=== PATIENT | male | born 1960 | race Caucasian/White ===

== ENCOUNTER → 2021-07-13 09:55 | Outpatient (BNVA) | payer OTHER, MEDICARE, SELFPAY | PROVIDERS: PCP Internal Medicine; Visit Provider Surgery Vascular Surgery ==

== ENCOUNTER 2021-07-19 06:03 | Day surgery (SDC) | payer MEDICARE, SELFPAY ==
--- NOTE | 2021-07-16 10:27 | P.CONAN_ITS ---
Documented by User: Mary Bennett NP 07/16/21 10:29 HPI - Anesthesia Eval Consult details Narrative: 61yo M for Left Temporal Artery Biopsy Prednisone 60mg daily for giant cell arteritis FORMERLY [facility], 1928–1983 Active Problems Active Problems: All Active Problems (Updated 07/16/21 @ 10:16 by Laurie Carrillo) Giant cell arteritis (Acute) Past Medical History Medical History (Updated 07/19/21 @ 06:42 by Mona Chaney, RN) Aftercare following right ankle joint replacement surgery Chronic sinusitis CKD (chronic kidney disease) stage 4, GFR 15-29 ml/min COVID-19 Hypertension Left tibial fracture Surgical History Surgical History (Updated 07/19/21 @ 06:42 by Mona Chaney, MAYKEL) Status post bilateral total hip replacement Social History Social History Are you a primary healthcare specialist to a significant other at home: No Do you presently have visiting nurse or other home services: No Patient Tobacco Use Status: Former Tobacco user Tobacco use type: Cigarette Meds Allergies Allergy/AdvReac Type Severity Reaction Status Date / Time lisinopril [From Zestril] AdvReac Cough Verified 07/19/21 07:25 Home Medications Medication Instructions Recorded Confirmed Last Taken Type losartan 100 mg tablet 100 mg PO DAILY 07/13/21 Unknown History ofloxacin 0.3 % ear drops 5 drp OTIC (EARS) BID 07/13/21 Unknown History prednisone 20 mg tablet 60 mg PO DAILY 07/13/21 Unknown History Exam Exam Date and Time: July 16, 2021 1027 Assessment and Plan Assessment Anesthesia Assessment: Chart Reviewed Documented by User: Jordon Mckeon MD 07/19/21 11:30 HPI - Anesthesia Eval Consult details Narrative: 61yo M for Left Temporal Artery Biopsy Recently his doctor has been adjusting his anti hypertensives . Will proceed as delaying the procedure will delay the diagnosis and may impact the patient adversely . Prednisone 60mg daily for giant cell arteritis FOR[facility]LY [facility], [facility] Past Medical History Medical History (Updated 07/19/21 @ 06:42 by Mona Chaney, RN) Aftercare following right ankle joint replacement surgery Chronic sinusitis CKD (chronic kidney disease) stage 4, GFR 15-29 ml/min COVID-19 Hypertension Left tibial fracture Functional capacity: independent ambulation Family History Family history of problems with anesthesia: No Surgical History Surgical History (Updated 07/19/21 @ 06:42 by Mona Chaney, RN) Status post bilateral total hip replacement History of Problems with Anesthesia: No Social History Social History Are you a primary healthcare specialist to a significant other at home: No Do you presently have visiting nurse or other home services: No Patient Tobacco Use Status: Former Tobacco user Tobacco use type: Cigarette Meds Allergies Allergy/AdvReac Type Severity Reaction Status Date / Time lisinopril [From Zestril] AdvReac Cough Verified 07/19/21 07:25 Home Medications Medication Instructions Recorded Confirmed Last Taken Type losartan 100 mg tablet 100 mg PO DAILY 07/13/21 Unknown History ofloxacin 0.3 % ear drops 5 drp OTIC (EARS) BID 07/13/21 Unknown History prednisone 20 mg tablet 60 mg PO DAILY 07/13/21 Unknown History Exam Airway Mallampati Class: II TM Dist: >3cm Neck ROM: Full Loose/Missing/Broken Teeth: Yes (Caps , crowns ) Heart: rrr Lungs: bl breath sounds Assessment and Plan Assessment Anesthesia Assessment: Anesthesia Plan Discussed Final Anesthetic Review Family History of Problems with Anesthesia: No History of Problems with Anesthesia: No NPO: Yes ASA Class: III Final Preanesthetic Review: Meds/Allgs Chart Reviewed, Consent Obtained/Reviewed and Anes Risks/Benef Reviewed Patient Risk: High Procedure Risk: Intermediate Anesthetic Plan Anesthetic Plan: MAC: Disposition: Standard PACU
[2021-07-19 06:12] VITALS: BP 176/87; PULSE 55; RESP 18; TEMP 36.6; O2SAT 99; BMI 23.9
[2021-07-19] MEDS: 0.9 % Sodium Chloride 1,000 ML 100 ML IVCONT (07:14)
--- NOTE | 2021-07-19 08:28 | P.OP_ITS ---
Operative Note Operative Note Date of Service: 07/19/21 Narrative: Operative note by [facility] Preoperative diagnosis:Giant cell arteritis Postoperative diagnosis: same Procedure: left temporal artery biopsy Surgeon:Evan Beltrán M.D. Supervisor Pipeline Maintenance: non Anesthesia: local with sedation Specimens: 1 Drains: none Estimated blood loss: 10 mL Indications: 61-year-old gentleman who presented with left temporal headaches. He presents for temporal artery biopsy. The patient has signed the informed consent after reviewing risks, complications, benefits, and alternatives previously discussed with the patient. The patient was given the opportunity to ask any additional questions or voice any concerns. All questions were answered to the patient's satisfaction. Procedure in detail: Patient was brought to the operating room prior to which a time-out was called for patient identification and site verification. Local was infiltrated. approximately a 2 inch incision was carried out over the temporal area just anterior to the ear. We dissected down on to the temporal artery. this was easily identified. This was confirmed with Doppler. We dissected out approximately a 2 in length. We placed a proximal and distal 3-0 silk tie. Specimen was then removed. Wound was irrigated out thoroughly. Deep layer was reapproximated using 3-0 Polysorb. Skin was closed with a 4-0 Monocryl. Dermabond was used as a sterile dressing. At the end the case sponge instrument counts were correct. Patient tolerated the procedure well and returned to recovery with stable vitals. This note is constructed using voice recognition software. While every effort has been made to ensure accuracy, gear straightener errors may have been included. Thank you for allowing me to participate in the care of your patient. Yours sincerely, Evan Beltrán MD, FACS, R.P.V.I.
[2021-07-19 08:31] VITALS: BP 159/74; PULSE 56; RESP 17; TEMP 36.3; O2SAT 97
[2021-07-19] MEDS: Acetaminophen 325 MG TABLET 650 MG PO (08:32)
[2021-07-19] MEDS: oxyCODONE HCl Immed Release 5 MG TABLET PO (08:33)
[2021-07-19 08:46] VITALS: BP 159/95; PULSE 64; RESP 18; TEMP 36.1; O2SAT 99
== END 2021-07-19 09:10 | disposition home or self-care (01) ==
PROVIDERS: Visit Provider Surgery Vascular Surgery
PROC: (CPT 37609; principal; 2021-07-19 07:30)
DX: G44.221 Chronic tension-type headache, intractable (principal); J32.9 Chronic sinusitis, unspecified; I12.9 Hypertensive chronic kidney disease with stage 1 through stage 4 chronic kidney disease, or unspecified chronic kidney disease; N18.4 Chronic kidney disease, stage 4 (severe); Z79.899 Other long term (current) drug therapy; Z79.52 Long term (current) use of systemic steroids; Z88.8 Allergy status to other drugs, medicaments and biological substances; Z87.891 Personal history of nicotine dependence; Z86.16 Personal history of COVID-19
CPT/HCPCS: 37609; 88305; J0690; J2250; J3010

== ENCOUNTER → 2023-07-21 09:54 | Outpatient (BNVA) | payer MEDICARE, SELFPAY | PROVIDERS: PCP Nurse Practitioner Family; Referring Provider Nurse Practitioner Family; Visit Provider Physician Assistant | DX: M53.3 Sacrococcygeal disorders, not elsewhere classified (principal); G89.29 Other chronic pain | CPT/HCPCS: 99202 ==

== ENCOUNTER 2023-07-21 14:42 | Outpatient (AMB) | payer MEDICARE, SELFPAY ==
--- NOTE | 2023-07-21 10:05 | HO.SPINEOV ---
Intake Intake Visit Reasons: Spinal Stenosis Lumbar Region Intake Note: Mr. Caraballo is here today c/o Low back pain. Metal Room Dental Technician Required: No Allergies lisinopril [From Zestril] Adverse Reaction (Verified 07/19/21 07:25) Cough Assessment & Plan Assessment & Plan (1) Chronic SI joint pain: Code(s): M53.3 - Sacrococcygeal disorders, not elsewhere classified; G89.29 - Other chronic pain Plan Dear Rakel, Thank you for referring Mr Caraballo to our office today. He is a very nice 63-year-old gentleman with a previous L4-[address] Cortez in 2011. He comes today with a multiyear history of pain on the left side of the low back near his SI joint which will radiate into his anterior groin and into his left buttock. The pain can be particularly bad with bending. He will also occasionally get a feeling of numbness in his foot any can reproduce it by pushing on the backside of his hamstring and buttock. He does have a history of neuropathy but this weird numbness feeling will be aggravated with activity or motion. He does not really have any pain on the right side in his low back or down his leg but does have a component of numbness in his leg and his foot on the right as well. He feels no significant discomfort lying down. He will take Tylenol for the pain. He can not take NSAIDs because of stage 4 kidney disease. He smokes marijuana daily to help with the pain as well. He comes today with an MRI showing degenerative disc disease in the setting of previous surgery. PMH: History of hypertension since he was a teenager that has not been well controlled and he has stage 4 kidney disease secondary to hypertensive nephropathy. History of osteoporosis, hypothyroidism, anemia, neuropathy, bilateral total hip replacements, L4-5 fusion, appendectomy. Denies any heart attacks, strokes, liver disease, abdominal surgery, bleeding disorders. Social hx: He does not smoke cigarettes, does not use alcohol but he does smoke marijuana daily to help with his pain Medications: Torsemide, pravastatin, carvedilol, levothyroxine, gabapentin, allopurinol, losartan, Farxiga, sodium bicarbonate, multivitamin and baby aspirin Allergies: Zestril Physical exam: Awake alert oriented no acute distress, patient has positive finger Bonifacio test, positive LEATHA sign on the left I am able to reproduce his pain exactly with this motion. Positive Gaenslen test on the left as well. Strength is grossly intact, reflexes normal. Imaging review: He has a lumbar MRI done at [facility] showing postsurgical changes with good decompression at L4-5. He has evidence of a solid fusion at L4-5. There is degenerative disc disease at L5-S1 with bilateral neural foraminal narrowing greater on the right. There is moderate central canal stenosis at L2-3. Impression: 63-year-old male history of previous L4-5 lumbar fusion now presents with a multiyear history of a left-sided low back pain which seems to localize itself over the left SI joint which is aggravated with bending forward. There is a component of numbness down his left leg which he can reproduce with pushing on his left hamstring and buttock area. He does have neuropathy in his feet but this is different and can be induced by different activities and manual compression. There is also component of anterior groin pain. His physical exam has a lot of findings suggestive of SI joint inflammation. There is also moderate stenosis at the left L5 foramen. Both of these things can produce similar symptoms of left-sided low back pain, left buttock pain and give tingling in the foot. Because of his physical exam findings I am going to have him evaluated for SI joint inflammation and give an SI joint block to see if we can localize where this is coming from. If it is unresponsive to the SI joint block, we will do an L5 block. At this time I do not think is L2-3 stenosis is symptomatic because he does not have claudicating leg pains, he has more of a mechanical situation on the left back and left buttock region which seems to me to fit better with the above diagnosis. I will see him back after the injection. Thank you for allowing us to care for your patient. The total time spent with this visit with this patient was 45 minutes reviewing history, physical exam, lumbar imaging review, and implementation of treatment plan or further diagnostic testing Jacky Gandhi MD,PhD [facility] Orders: Referrals Physiatry Referral G89.29 - Other chronic pain, M53.3 - Sacrococcygeal disorders, not elsewhere classified Coding Level of Care Code New Pt Level 4 (97945) Diagnoses Chronic SI joint pain M53.3; G89.29
== END 2023-07-21 15:36 | disposition home or self-care (01) ==
PROVIDERS: PCP Internal Medicine; Referring Provider Nurse Practitioner Family; Visit Provider Physician Assistant
DX: M53.3 Sacrococcygeal disorders, not elsewhere classified (principal); G89.29 Other chronic pain
CPT/HCPCS: 99204; 99214

== ENCOUNTER 2024-02-02 11:12 | Outpatient (AMB) | payer MEDICARE, SELFPAY ==
--- NOTE | 2024-02-02 11:28 | HO.SPINEOV ---
Intake Visit Reasons: failed SI injection Intake Note: Mr. Caraballo is here today to F/u after failed SI injections. Envelope Stamping Machine Operator Required: No Allergies lisinopril [From Zestril] Adverse Reaction (Verified 07/19/21 07:25) Cough Assessment & Plan Assessment & Plan (1) Chronic SI joint pain: Code(s): M53.3 - Sacrococcygeal disorders, not elsewhere classified; G89.29 - Other chronic pain Category: Medical Plan Mr Caraballo is here to follow up on his SI joint injection. He had 100% pain relief with the lidocaine injection into the SI joint suggesting this is a mechanical problem. He has been wearing the SI joint belt prescribed to him by Dr. Rivera and that also has been helping significantly. It is cumbersome but he does admit that he has a positive effect. He still hears the clunking noise in his SI joint when he stands and bends. I think we have enough information here to confirm as the SI joint as the source of his pain. However, we know that the insurance companies have been requiring a 2nd follow up injection to confirm the pain is coming from the SI joint, so I will contact Dr. Rivera to see if he can repeat this for us. We will tentatively schedule him for an SI joint fusion once the 2nd injection is completed and confirmed that it is giving him the same affect is the 1st 1. We did discuss SI joint fusion, risks, benefits and recovery. Dr. Gandhi met with the patient today as well. Total amount of time spent in this visit was 20 minutes in discussion of symptoms, SI joint and lumbar imaging results and subsequent plan of care Jacky Gandhi MD,PhD [facility] Coding Level of Care Code Est Pt Level 3 (22204) Diagnoses Chronic SI joint pain M53.3; G89.29
== END 2024-02-02 12:23 | disposition home or self-care (01) ==
PROVIDERS: PCP Internal Medicine; Visit Provider Physician Assistant
DX: M53.3 Sacrococcygeal disorders, not elsewhere classified (principal); G89.29 Other chronic pain
CPT/HCPCS: 99213

== ENCOUNTER → 2024-02-02 11:12 | Outpatient (BNVA) | payer MEDICARE, SELFPAY | PROVIDERS: PCP Internal Medicine; Visit Provider Physician Assistant | DX: M53.3 Sacrococcygeal disorders, not elsewhere classified (principal); G89.29 Other chronic pain | CPT/HCPCS: 99212 ==

== ENCOUNTER 2024-03-15 13:38 | Outpatient (AMB) | payer MEDICARE, SELFPAY ==
--- NOTE | 2024-03-15 13:47 | HO.SPINEOV ---
Intake Visit Reasons: follow up Intake Note: Mr. Caraballo is here today for a F/u. Inspector Mechanical Required: No Allergies lisinopril [From Zestril] Adverse Reaction (Verified 03/15/24 13:48) Cough Assessment & Plan Assessment & Plan (1) Chronic SI joint pain: Code(s): M53.3 - Sacrococcygeal disorders, not elsewhere classified; G89.29 - Other chronic pain Category: Medical Plan Mr Caraballo is following up today to discuss the results of his injection in the left SI joint. His 2nd injection did give him complete relief for few hours after the procedure indicating here that now we have to success of injections with lidocaine demonstrating the SI joint as the source of his pain. As outlined in my previous notes, he has severe left SI joint pain which has been overwhelming. Here is a clunking noise in his SI joint when he moves his hips in a flexed position. He has positive physical exam findings including finger Bonifacio test, SI joint compression test, Gaenslen test, LEATHA testing. He has been on medication trials etc.. I think we have enough data to justify left SI joint fusion. Patient previously saw Dr. Gandhi who agreed that if a 2nd follow up injection gav him relief, we would offer him left SI joint fusion. We have tentatively booked him for April 18. He will stop his aspirin 7 days prior to surgery. He understands he needs to use crutches and be off his leg for 3 weeks after surgery. He has a pair at home he will bring them the day of surgery. Pt was given risk and benefits of surgery including but not limited to infection, hematoma , nerve injury,durotomy, weakness,bowel/bladder injury, persistent pain, as well as the option to continue with conservative treatment and patient wishes to proceed with surgery. Pt is aware they should stop their motrin, aspirin 7 days prior to surgery. All questions were answered to the best of our ability. If there is anything about this patients medical history that we have overlooked or concerns you have about us proceeding with surgery we would appreciate any input you can offer. Total amount of time spent in this visit was 20 minutes in discussion of symptoms, previous lumbar MRI imaging results and subsequent plan of care Jacky Gandhi MD,PhD [facility] Coding Level of Care Code Est Pt Level 3 (97608) Diagnoses Chronic SI joint pain M53.3; G89.29
== END 2024-03-15 14:17 | disposition home or self-care (01) ==
PROVIDERS: PCP Internal Medicine; Visit Provider Physician Assistant
DX: M53.3 Sacrococcygeal disorders, not elsewhere classified (principal); G89.29 Other chronic pain
CPT/HCPCS: 99213

== ENCOUNTER → 2024-03-15 13:38 | Outpatient (BNVA) | payer MEDICARE, SELFPAY | PROVIDERS: PCP Internal Medicine; Visit Provider Physician Assistant | DX: M53.3 Sacrococcygeal disorders, not elsewhere classified (principal); G89.29 Other chronic pain | CPT/HCPCS: 99212 ==

== ENCOUNTER 2024-04-18 08:47 | Day surgery (SDC) | payer MEDICARE, SELFPAY ==
[2024-04-17 13:44] VITALS: BMI 22.5
[2024-04-18] VITALS (9 sets, daily range): BP systolic 107–158; BP diastolic 68–87; PULSE 60–74; RESP 14–18; TEMP 36.1–36.7; O2SAT 96–100
[2024-04-18] MEDS: Lactated Ringers 1,000 ML 80 ML IVCONT (09:28)
--- NOTE | 2024-04-18 09:57 | MHC.SHP ---
Pre-Procedural Eval Section A - 24 Hr Update-Section A only Date of Service: 04/18/24 The patient is an INPATIENT: No Section B - Complete if H&P > 30 days Chief Complaint: Sacrococcygeal disorders, not elsewhere classified Details of Present Illness: Left SI joint pain Allergies: Allergies Allergy/AdvReac Type Severity Reaction Status Date / Time oxycodone [From OxyContin] Allergy Intermediate Itching Verified 04/18/24 09:14 lisinopril [From Zestril] AdvReac Intermediate Cough Verified 04/18/24 09:14 Review of Systems Sugical H&P ROS: Negative: Constitution, Cardiovascular, Respiratory, Neurological, Psychiatric, Hem-Onc, Allergic/Immunologic, Gastrointestinal, Genitourinary, Musculoskeletal, Integumentary, Endocrine and Eyes/Ears/Nose/Throat Exam Surgical H&P Exam: Normal: HEENT, Normal: Heart, Normal: Lungs, Normal: Extremities, Normal: Abdomen, Normal: Skin and Normal: Neurological (Awake, alert) Plan Diagnosis/Plan: Unchanged I have reviewed the history and physical and performed a pertinent physical examination on my patient. No changes have occurred unless specified. Left SI joint fusion Time Spent With Patient Time: Total time managing care of this patient today __5__ minutes.
--- NOTE | 2024-04-18 10:08 | P.DS_ITS ---
DS: Providers Provider Date of Service: 04/18/24 <BRISEIDA Felix - Last Filed: 04/18/24 11:47> Date of discharge: 04/18/24 <BRISEIDA Felix - Last Filed: 04/18/24 11:47> Primary care physician: Ann Marie Boucher MD <BRISEIDA Felix - Last Filed: 04/18/24 11:47> Admitting clinician: Carl Gandhi <BRISEIDA Felix - Last Filed: 04/18/24 11:47> DS: Diagnosis Discharge Diagnosis (1) Chronic SI joint pain: Status: Acute <BRISEIDA Felix - Last Filed: 04/18/24 11:47> DS: Summary Time Attestation Discharge Coordination Time (in mins): 15 <BRISEIDA Rosa - Last Filed: 04/18/24 12:42> Quality: Safe Use of Opioids Does Pt have an Active Cancer Diagnosis on the Problem List?: No <BRISEIDA Rosa - Last Filed: 04/18/24 12:42> Quality: Stroke Does the patient have a stroke diagnosis?: No <BRISEIDA Rosa - Last Filed: 04/18/24 12:42> Physical Exam Vital Signs: Vital Signs: Last Vital Signs Temp 98.1 F 04/18/24 09:26 Pulse 61 04/18/24 09:26 Resp 18 04/18/24 09:26 BP 137/82 04/18/24 09:26 Pulse Ox 100 04/18/24 09:26 O2 Del Method Room Air 04/18/24 09:26 BMI result Body Mass Index 22.5 <BRISEIDA Felix - Last Filed: 04/18/24 11:47> Discharge Plan Discharge Patient Disposition: Home, Self-Care <BRISEIDA Felix - Last Filed: 04/18/24 11:47> Referrals: Ann Marie Boucher MD [Primary Care Provider] - 1 Week <BRISEIDA Felix - Last Filed: 04/18/24 11:47> Discharge Medications: New docusate sodium [Colace] 100 mg capsule 100 mg PO BID Qty: 20 0RF tramadol 50 mg tablet 50 mg PO Q8H PRN (Reason: pain) Qty: 20 0RF Continued torsemide 10 mg tablet 10 mg PO DAILY amlodipine 5 mg tablet 5 mg PO DAILY allopurinol 100 mg tablet 200 mg PO DAILY levothyroxine 125 mcg tablet 125 mcg PO DAILY dapagliflozin propanediol [Farxiga] 10 mg tablet 10 mg PO QAM losartan 100 mg tablet 100 mg PO DAILY gabapentin 300 mg capsule 600 mg PO BID pravastatin 80 mg tablet 80 mg PO DAILY carvedilol 25 mg tablet 25 mg PO BID aspirin [Adult Aspirin Regimen] 81 mg tablet,delayed release (DR/EC) 81 mg PO DAILY <BRISEIDA Felix - Last Filed: 04/18/24 11:47> Discharge Orders: Discharge Order (Routine); Ordered 04/18/24 Ordered By: Haris Cedillo <BRISEIDA Felix - Last Filed: 04/18/24 11:47> Diet: Advance to usual diet <BRISEIDA Felix - Last Filed: 04/18/24 11:47> Advance to usual diet <BRISEIDA Rosa - Last Filed: 04/18/24 12:42> Activity on Discharge: As tolerated <BRISEIDA Felix - Last Filed: 04/18/24 11:47> As tolerated <BRISEIDA Rosa - Last Filed: 04/18/24 12:42> Activity Restrictions/Additional Instructions: After your SI joint fusion surgery we ask you to observe the following restrictions/guidelines: Activity: It is normal to feel some discomfort as you increase your activity, but that will improve with time. We ask you avoid heavy lifting or acitivities that cause pain. As a general rule, 8lbs is a safe limit for lifting right after surgery. We ask you to stay off your left leg after surgery in order to help the SI joint fuse. Please use crutches or walker. You may return to driving when you are off narcotics (such as vicodin, oxycodone, dilaudid, etc), and you are back to normal functional capacity. If you have any concerns please check with office before driving. Return to work is specific to each patient and each surgery, so please speak with your doctor/PA at first follow up. Please bring paperwork such as FMLA at that time if you need it filled out. Follow up: Please call the office, , after surgery to arrange a 3 week follow up for wound check. Wound Care: Your wound was closed with glue, there are no sutures to remove. You may shower on post op day # 1. We ask that you do not let the water soak the wound. If it does get wet, just towel dry lightly. Please do not scrub your incision or place any type of chemical/ointment on the wound. No tub baths, pools or jacuzzis for one month. If you have any leaking or redness from your wound, or fevers, please call office Medications: We will give you a short supply of narcotics after surgery (usually one weeks worth). If you need more please call the office but do not use more than prescribed. You will need to give our office 48 hours notice if you need narcotics refilled and we do not fill narcotics on weekends or evenings. If you are on a narcotic, it is a good idea to take a stool softener such as colace or senna to avoid constipation If you take blood thinner such as aspirin, Plavix, Coumadin, Effient, Eliquis etc for conditions such as Afib, DVT, Pulmonary embolus, coronary disease, stents etc please speak with your surgeon about specific details as to when you can resume these medications. You can resume NSAIDs on post op day 1 (eg: Motrin, Naproxen, etc). <BRISEIDA Felix - Last Filed: 04/18/24 11:47> Print Language: Northern Irish <BRISEIDA Felix - Last Filed: 04/18/24 11:47>
[2024-04-18] MEDS: methocarbamoL 750 MG TABLET PO (10:14)
--- NOTE | 2024-04-18 10:40 | P.CONAN_ITS ---
[facility] Active Problems Active Problems: All Active Problems Chronic SI joint pain (Acute) Giant cell arteritis (Acute) Past Medical History Medical History Giant cell arteritis Elevated cholesterol H/O sciatica Gout Left tibial fracture Aftercare following right ankle joint replacement surgery Chronic sinusitis COVID-19 CKD (chronic kidney disease) stage 4, GFR 15-29 ml/min Hypertension Family History Family history of problems with anesthesia: No Surgical History Surgical History Hx of decompressive lumbar laminectomy History of temporal artery biopsy (07/19/21) Status post bilateral total hip replacement (~2013) History of Problems with Anesthesia: No Social History Social History Are you a primary palliative care specialist to a significant other at home: Yes (mother- siblings will help post-op) Do you presently have visiting nurse or other home services: No Patient Tobacco Use Status: Former Tobacco user Tobacco use type: Cigarette Smoked in Last 30 Days: No Use of substances other than those prescribed or required for medical reasons: Yes Substance Use Frequency: Daily Have you been hit, kicked, punched, or otherwise hurt by someone within the past year? If so, by whom?: No Are you DNR?: No Advance Directives: No (will bring dos) Advance Directives Information Provided: Yes Advance Directives on File: No Recently lost weight without trying: No Nutrition Risks: No Nutritional Risk Poor oral hygiene: No Meds Allergies Allergy/AdvReac Type Severity Reaction Status Date / Time oxycodone [From OxyContin] Allergy Intermediate Itching Verified 04/18/24 09:14 lisinopril [From Zestril] AdvReac Intermediate Cough Verified 04/18/24 09:14 Active Medications: Current Medications Lactated Ringer's (Lr) 1,000 mls @ 80 mls/hr IVCONT .[id number] URSULA Last Admin: 04/18/24 09:28 Dose: 80 mls/hr Home Medications ?Medication ?Instructions ?Recorded ?Confirmed ?Last Taken ?Type losartan 100 mg tablet 100 mg PO DAILY 07/13/21 04/17/24 Unknown History aspirin 81 mg tablet,delayed 81 mg PO DAILY 0304/17/24 04/12/24 History release (Adult Aspirin Regimen) carvedilol 25 mg tablet 25 mg PO BID 07/21/23 04/17/24 04/18/24 History gabapentin 300 mg capsule 600 mg PO BID 07/21/23 04/17/24 04/18/24 History pravastatin 80 mg tablet 80 mg PO DAILY 07/21/23 04/17/24 04/18/24 History allopurinol 100 mg tablet 200 mg PO DAILY 04/17/24 04/17/24 Unknown History amlodipine 5 mg tablet 5 mg PO DAILY 04/17/24 04/17/24 Unknown History dapagliflozin propanediol 10 mg 10 mg PO QAM 04/17/24 04/17/24 04/15/24 History tablet (Farxiga) levothyroxine 125 mcg tablet 125 mcg PO DAILY 04/17/24 04/17/24 04/18/24 History torsemide 10 mg tablet 10 mg PO DAILY 04/17/24 04/17/24 Unknown History Exam Height,Weight and Vital Signs: Height 5 ft 8 in Weight 67.132 kg Last Vital Signs Temp 98.1 F 04/18/24 09:26 Pulse 61 04/18/24 09:26 Resp 18 04/18/24 09:26 BP 137/82 04/18/24 09:26 Pulse Ox 100 04/18/24 09:26 O2 Del Method Room Air 04/18/24 09:26 Airway Mallampati Class: II TM Dist: >3cm Neck ROM: Full Assessment and Plan Assessment Anesthesia Assessment: Anesthesia Plan Discussed and Chart Reviewed Final Anesthetic Review Family History of Problems with Anesthesia: No History of Problems with Anesthesia: No NPO: Yes ASA Class: II Final Preanesthetic Review: No Changes in Pt Med Stat, Meds/Allgs Chart Reviewed, Consent Obtained/Reviewed and Anes Risks/Benef Reviewed Patient Risk: Low Procedure Risk: Low Anesthetic Plan Anesthetic Plan: GA Disposition: Standard PACU
[2024-04-18] MEDS: fentaNYL citrate/PF 100 MCG/2 ML VIAL 50 MCG IVPUSH (13:19)
--- NOTE | 2024-04-18 14:15 | W.PM.OPN ---
Operative Note Operative Note Date of Service: 04/18/24 Narrative: Preoperative diagnosis: Left sacroiliitis Postoperative diagnosis: Same Operative procedure: Left sacroiliac joint fusion with 1 allograft implant Surgeon: Carl Gandhi MD, PhD Journal Box Inspector: Jacky Valdes PA-C Anesthesia: General Description of procedure: The patient is suffering from left SI joint dysfunction refractory to nonoperative management. The patient has tried and failed all forms of conservative manage med except for an excellent short-term response to a sacroiliac joint injection. The sacroiliac joint was confirmed to be the pain generator after repeated pain blocks. The patient was offered surgical treatment with fixation and arthrodesis of the SI joint. The patient was brought to the operating room and endotracheally intubated. The patient was turned in a prone position on Michael spine table. Prepping and draping was done followed by a time-out. A C-arm was alternately positioned for lateral, oblique oblique and pelvic inlet and outlet projections througout the procedure. Skin markings were made for the anticipated position of the implant. A 2.5 cm longitudinal skin incision was made. A guide pin was inserted in an outlet oblique image for guidance follow-up insertion of dilator and working cannula. This was secured by placing an anchor pin into the ilium. Consideration was taken to cut channels utilizing a series of drills for decortication and internal fixation device placement. The implant was inserted such that it passed through the ilium, across the sacroiliac joint and into the sacrum, thus transfixing the sacroiliac joint. Proper positioning was confirmed on lateral fluoroscopy. The implant was packed with autologous bone collected from remain of the sacrum and ilium. Additional graft material was inserted into the channel void following the implant. The instruments were withdrawn. Upon completion, final images were obtained that showed a satisfactory position of the implant. Hemostasis was done. The incision was closed with an 0 Vicryl to fashion a 3-0 Vicryl subdermal layer after injecting Marcaine. Dermabond was used to approximate the surgeon. All sponge and needle counts were correct. Patient was extubated and transported in a stable condition to recovery room. Estimated blood loss: 40 mL Surgical time: 45 minutes Complications: None Disposition: Discharge to home
== END 2024-04-18 14:07 | disposition home or self-care (01) ==
PROVIDERS: PCP Internal Medicine; Visit Provider Neurological Surgery
PROC: (CPT 27279; principal; 2024-04-18 11:10)
DX: M46.1 Sacroiliitis, not elsewhere classified (principal); G89.29 Other chronic pain; M53.3 Sacrococcygeal disorders, not elsewhere classified; M31.6 Other giant cell arteritis; M10.9 Gout, unspecified; I12.9 Hypertensive chronic kidney disease with stage 1 through stage 4 chronic kidney disease, or unspecified chronic kidney disease; N18.4 Chronic kidney disease, stage 4 (severe); E78.00 Pure hypercholesterolemia, unspecified; Z79.82 Long term (current) use of aspirin; Z79.899 Other long term (current) drug therapy; Z88.2 Allergy status to sulfonamides; Z88.8 Allergy status to other drugs, medicaments and biological substances; Z98.890 Other specified postprocedural states; Z87.891 Personal history of nicotine dependence
CPT/HCPCS: 27279; C1713; J0131; J0690; J1100; J1885; J2003; J2250; J2405; J2704; J3010; L8699

== ENCOUNTER → 2024-04-18 08:47 | Outpatient (BNV) | payer MEDICARE, SELFPAY | PROVIDERS: PCP Internal Medicine; Visit Provider Neurological Surgery | DX: M46.1 Sacroiliitis, not elsewhere classified (principal); M53.3 Sacrococcygeal disorders, not elsewhere classified | CPT/HCPCS: 27279 ==

== ENCOUNTER 2024-05-09 08:54 | Outpatient (REF) | payer MEDICARE, SELFPAY | END 2024-05-09 08:55 | disposition home or self-care (01) | LOC: HO.HOSX 08:54 | PROVIDERS: PCP Internal Medicine; Visit Provider Physician Assistant | DX: M53.3 Sacrococcygeal disorders, not elsewhere classified (principal); G89.29 Other chronic pain | CPT/HCPCS: 99212 ==

== ENCOUNTER 2024-05-09 08:54 | Outpatient (AMB) | payer MEDICARE, SELFPAY ==
--- NOTE | 2024-05-09 08:58 | HO.SPINEOV ---
Intake Visit Reasons: 1st post op Intake Note: Mr. Caraballo is here today for his 1st post op Aviation Tactical Readiness Officer Required: No Allergies oxycodone [From OxyContin] Allergy (Intermediate, Verified 04/18/24 09:14) Itching lisinopril [From Zestril] Adverse Reaction (Intermediate, Verified 04/18/24 09:14) Cough Assessment & Plan Assessment & Plan (1) Chronic SI joint pain: Code(s): M53.3 - Sacrococcygeal disorders, not elsewhere classified; G89.29 - Other chronic pain Category: Medical Plan Operative procedure: Left sacroiliac joint fusion Javier comes in today for his 1st postoeprative visit after Left SI joint fusion 3 weeks ago. To recap he was initially evaluated in clinic for multi-year history of pain on the left side of the low back near his SI joint which will radiate into his anterior groin and into his left buttock. He reports complete resolution of his low back pain and leg pain since the surgery. He has been ambulating well without issue, completing stairs, and is taking no current medications. He reports that the numbness in his left posterior buttocks is also resolved since the surgery. We discussed the postoperative healing course and I answered all of his questions to the best of my ability. No new neurological deficits. The patient ambulates well and rises from a seated position without difficulty. His posterior incision site is clean, dry, with no signs of drainage. It appears to be healing well, there is a small seroma near the area, but this is likely to resolve with time. I would like to follow up with Javier again in 6 weeks and obtain a set of x-rays. Haris Gandhi MD,PhD [facility] Coding Level of Care Code Global (20655) Diagnoses Chronic SI joint pain M53.3; G89.29
== END 2024-05-09 09:20 | disposition home or self-care (01) ==
PROVIDERS: PCP Internal Medicine; Visit Provider Physician Assistant
DX: M53.3 Sacrococcygeal disorders, not elsewhere classified (principal); G89.29 Other chronic pain
CPT/HCPCS: 99024

== ENCOUNTER 2024-06-20 08:50 | Outpatient (AMB) | payer MEDICARE, SELFPAY ==
--- NOTE | 2024-06-20 08:53 | HO.SPINEOV ---
Intake Visit Reasons: 2nd post with xrays Intake Note: Mr. Caraballo is here today for his 2nd post op with xrays. Blind Cleaner Required: No Allergies oxycodone [From OxyContin] Allergy (Intermediate, Verified 04/18/24 09:14) Itching lisinopril [From Zestril] Adverse Reaction (Intermediate, Verified 04/18/24 09:14) Cough Assessment & Plan Assessment & Plan (1) S/P fusion of sacroiliac joint: Code(s): Z98.1 - Arthrodesis status Category: Surgical Plan Operative procedure: Left sacroiliac joint fusion Javier comes in today for his 2nd postoperative visit. He reports he is very satisfied with the surgery and feels much better than he did pre-operatively. The patient reports he is up walking around and completing the majority of his ADLs. He reports that he no longer suffers from anterior groin pain that shoots into his left buttock. His back pain is also resolved. He continues to ambulate well. We reviewed his X-ray imaging during this visit which shows stable placement of allograft fusion implant. No new neurological deficits. Patient is able to ambulate well, rises from a seated position without difficulty. Incision site is closed, well healing, with no signs of drainage. Javier is overall doing great, he is very happy with surgery and states he will be referring a couple of his friends to our service for evaluation. There is no need for continued routine follow up with Javier. He may follow up on an as needed basis. Haris Gandhi MD,PhD [facility] Coding Level of Care Code Global (55947) Diagnoses S/P fusion of sacroiliac joint Z98.1
--- OUTSIDE RECORDS SUMMARY | 2024-06-20 09:05 | XMS_ITS | Clinical Summary ---
Author Organization [facility], Address [address] [place] [address] Phone Care Team Providers Care Optical Instrument Specialist Name Role Phone Ann Marie Boucher MD Primary Care Provider [phone] Allergies Active Allergy Reactions Criticality Noted Date Comments Diltiazem 09/27/2016 Numbnes of feet Numbnes of feet Lisinopril Other (see comments) High 11/01/2005 cough cough Oxycodone Other (see comments) 06/14/2019 Simvastatin 12/14/2010 Pain on feet Pain on feet Medications alendronate (FOSAMAX) 35 MG tablet Take 35 mg by mouth every 7 (seven) days Active aspirin (ST JENNIFER) 81 MG EC tablet Take 81 mg by mouth 1 (one) time each day Active gabapentin (NEURONTIN) 300 MG capsule Take 600 mg by mouth twice a day Active levothyroxine (SYNTHROID, LEVOTHROID) 125 MCG tablet Take 125 mcg by mouth 1 (one) time each day Active pravastatin (PRAVACHOL) 80 MG tablet Take 80 mg by mouth 1 (one) time each day Active traMADol (ULTRAM) 50 MG tablet Take 100 mg by mouth twice a day Active sodium bicarbonate 650 MG tablet Take 650 mg by mouth 1 (one) time each day Active SODIUM BICARBONATE PO Take 650 mg by mouth Active ferrous sulfate 325 (65 Fe) MG EC tablet Take 325 mg by mouth 2 Active ATORVASTATIN CALCIUM PO Take by mouth 2 Active allopurinol (ZYLOPRIM) 100 MG tablet 3 Active carvedilol (COREG) 25 MG tablet TAKE 1 TABLET BY MOUTH TWICE A DAY WITH FOOD 180 tablet 3 4 Active Dapagliflozin Propanediol (Farxiga) 10 MG tablet Take 10 mg by mouth 1 (one) time each day in the morning 90 tablet 3 4 025 Active Dapagliflozin Propanediol (Farxiga) 10 MG tablet Take 10 mg by mouth 1 (one) time each day in the morning 30 tablet 11 4 Active GaviLyte-G 236 g solution 4 Active amLODIPine (NORVASC) 5 MG tablet Take 1 tablet (5 mg total) by mouth 1 (one) time each day 30 tablet 5 4 025 Active torsemide (DEMADEX) 10 MG tablet Take 1 tablet (10 mg total) by mouth 1 (one) time each day 30 tablet 3 4 Active losartan (COZAAR) 100 MG tablet TAKE 1 TABLET BY MOUTH 1 TIME EACH DAY. 90 tablet 3 5 Active losartan (COZAAR) 100 MG tablet Take 1 tablet (100 mg total) by mouth 1 (one) time each day 90 tablet 3 4 025 Discontinued Active Problems Problem Noted Date Diagnosed Date Chronic kidney disease, stage 3 (moderate) 06/14 Microalbuminuria Serum creatinine above reference range Hypercholesterolemia Essential hypertension Edema of lower extremity Anemia Resolved Problems Problem Noted Date Diagnosed Date Resolved Date Hypothyroidism 01/31/2022 Gout 01/31/2022 Encounters Date Type Department Care Team Description 06/12/2024 2:30 PM EST Office Visit [facility], [address] [address] Madi Riggins MD Chronic kidney disease, stage 4 (severe) (HCC) (Primary Dx) 05/25/2024 Refill [facility] [place] [address] Madi Riggins MD 05/06/2024 Refill [facility], [address] [place] [address] Theresa Branch from Last 3 Months Immunizations Name Administration Dates Next Due Influenza TIV (IM) 02/01/2020, 6,03/31/2015,2013 Influenza, MDCK, PF, Quadrivalent 01/17/2019, Influenza, MDCK, Quadrivalen t, with preservative 04/03/2017 Influenza, Unspecified 01/16/2021 Pfizer SARS-COV-2 02/23/2021,08/08/2020,07/19/19 21 Td 11/01/2005 Tdap 12/14/2010,06/06/2000 Family History Medical History Relation Comments Hypertension Brother Cancer Father lung Hypertension Father Lung cancer Father Dementia Mother beginning stages Hypertension Sibling brother Relation Status Comments Brother Father Alive Mother Alive Sibling Social History Tobacco Use Types Packs/Day Years Used Date Smoking Tobacco: Never Smokeless Tobacco: Never Alcohol Use Standard Drinks/Week Comments Yes 0 (1 standard drink = 0.6 oz pure alcohol) Alcoholic Drinks/day: Occasional social drink Sex and Gender Information Value Date Recorded Sex Assigned at Not on file Legal Sex Male 4:34 PM EST Gender Identity Not on file Sexual Orientation Not on file Last Filed Vital Signs Vital Sign Reading Time Taken Comments Blood Pressure 162/90 06/17/2019 2:20 PM EST Pulse - - Temperature - - Respiratory Rate - - Oxygen Saturation - - Inhaled Oxygen Concentration - - Weight 65.5 kg (144 lb 6.4 oz) 07/31/2020 9:30 A M EDT Height 172.7 cm (5' 8 ) 12/24/2018 12:00 PM EDT Body Mass Index 21.96 12/24/2018 12:00 PM EDT Plan of Treatment Upcoming Encounters Date Type Department Care Team (Late st Contact Info) Description 12/18/2024 1:45 PM EDT Office Visit [facility], [address] [place] [address] Madi Riggins MD [address] [place] [address] Health Maintenance Due Date Last Done Comments Pneumococcal Vaccine: Pediatrics (0 to 5 Years) and At-Risk Patients (6 to 64 Years) (1 of 2 - PCV) 1966 Colorectal Cancer Screening: Annual FOBT 2010 Colorectal Cancer Screening: Colonoscopy 2010 Colorectal Cancer Screening: Sigmoidoscopy 2010 Influenza Vaccine (#1) 2024 2, 01/16/2021, 02/01/2020, Additional history exists Hepatitis B Vaccine Aged Out No longe r eligible based on patient's age to complete this topic Procedures Procedure Name Priority Date/Time Associated Diagnosis Comments FERRITIN Routine 06/10/2024 11:35 AM EST MAGNESIUM Routine 06/10/2024 11:35 AM EST PHOSPHATE ( PHOSPHORUS) Routine 06/10/2024 11:35 AM EST URIC ACID Routine 06/10/2024 11:35 AM EST VITAMIN D 25 HYDROXY Routine 06/10/2024 11:35 AM EST URINE ALBUMIN / CREATININE RATIO Routine 06/10/2024 11:35 AM EST IRON PANEL (FE, TIBC, TSAT) Routine 06/10/2024 11:35 AM EST URINALYSIS WITH MICROSCOPIC Routine 06/10/2024 11:35 AM EST COMPREHENSIVE METABOLIC PANEL Routine 06/10/2024 11:35 AM EST CBC AND DIFFERENTIAL Routine 06/10/2024 11:35 AM EST MICROSCOPIC EXAMINATION - DO NOT USE Routine 06/10/2024 11:35 AM EST from Last 3 Months Results * Microscopic Examination (06/10/2024 11:35 AM EST) WBC, Urine None seen 0 - 5 /hpf [facility] RBC, Urine None seen 0 - 2 /hpf [facility] Squamous Epithelial, Urine None seen 0 - 10 /hpf [facility] Casts None seen None seen /lpf [facility] Bacteria, Urine None seen None seen/Few [facility] 06/10/2024 11:3 5 AM EST 06/10/2024 Madi Riggins MD LAB MICROBIOLOGY - GENERAL ORD ERABLES Final Result [facility] [address] [place] [address] * Iron Panel (Fe, TIBC, TSAT) (06/10/2024 11:35 AM EST) TIBC 291 250 - 450 ug/dL [facility] UIBC 221 111 - 343 ug/dL [facility] Iron 70 38 - 169 ug/dL [facility] Iron Saturation (TSat) 24 15 - 55 % [facility] 06/10/2024 11:3 5 AM EST 06/10/2024 Madi Riggins MD LAB BLOOD ORDERABLES Final Res ult Performing Organization Address City/[facility]/ZIP Co de Phone Number [facility] [address] [place] [address] * Vitamin D 25 Hydroxy (06/10/2024 11:35 AM EST) Vitamin D, 25-OH, Total 48.1 30.0 - 100.0 ng/mL [facility] Comment: Vitamin D deficiency has been defined by the [place] of Medicine and an Endocrine Society practice guideline as a level of serum 25-OH vitamin D less than 20 ng/mL (1,2). The Endocrine Society went on to further define vitamin D insufficiency as a level between 21 and 29 ng/mL (2). 1. IOM ([place] of Medicine). 2010. Dietary reference ?? intakes for calcium and D. [place]: The ?? National Academies Press. 2. Catracho MF, Kellie NC, Kelsea SALMERON, et al. ?? Evaluation, treatment, and prevention of vitamin D ?? deficiency: an Endocrine Society clinical practice ?? guideline. JCEM. 2010; 96(7):1911-30. 06/10/2024 11:3 5 AM EST 06/10/2024 us Madi Riggins MD LAB BLOOD ORDERABLES Final Res ult [facility] [address] [place] [address] * (ABNORMAL) Urinalysis with microscopic (06/10/2024 11:35 AM EST) Specific [place], Urine 1.009 1.005 - 1.030 [facility] pH Urine 6.5 5.0 - 7.5 [facility] [phone] Color, Urine Yellow Yellow [facility] [phone] Appearance Urine Clear Clear [facility] WBC Esterase Urine Negative Negative [facility] Protein, Ur Negative Negative/Tra ce [facility] [phone] Glucose, Ur Trace(A) Negative [facility] Ketones, Urine Negative Negative [facility] Blood Urine Negative Negative [facility] [phone] Bilirubin Urine Negative Negative [facility] Urobilinogen Urine 0.2 0.2 - 1.0 mg/dL [facility] [phone] Nitrite, Urine Negative Negative [facility] Microscopic Examination Comment [facility] Comment:Microscopic follows if indicated. Other Microsc. Observations See below: [facility] Comment:Microscopic was jose enrique cated and was performed. 06/10/2024 11:3 5 AM EST 06/10/2024 us Madi Riggins MD LAB URINE ORDERABLES Final Res ult [facility] [address] [place] [address] * (ABNORMAL) CBC and Differential (06/10/2024 11:35 AM EST) WBC 6.4 3.4 - 10.8 x10E3/uL [facility] RBC 3.73(L) 4.14 - 5.80 x10E6/uL [facility] Hemoglobin 13.0 13.0 - 17.7 g/dL [facility] Hematocrit 37.7 37.5 - 51.0 % [facility] MCV 101(H) 79 - 97 fL [facility] MCH 34.9(H) 26.6 - 33.0 pg [facility] MCHC 34.5 31.5 - 35.7 g/dL [facility] RDW 13.2 11.6 - 15.4 % [facility] Platelets 278 150 - 450 x10E3/uL [facility] Neutrophils Relative 66 Not Estab. % [facility] Lymphocytes Relative 21 Not Estab. % [facility] Monocytes 11 Not Estab. % [facility] Eosinophils Relative 1 Not Estab. % [facility] Basophils Relative 1 Not Estab. % [facility] Neutrophils Absolute 4.2 1.4 - 7.0 x10E3/uL [facility] Lymphocytes Absolute 1.3 0.7 - 3.1 x10E3/uL [facility] Monocytes Absolute 0.7 0.1 - 0.9 x10E3/uL [facility] Eosinophils Absolute 0.1 0.0 - 0.4 x10E3/uL [facility] Basophils Absolute 0.1 0.0 - 0.2 x10E3/uL [facility] Immature Granulocytes 0 Not Estab. % [facility] Immature Grans (Absolute) 0.0 0.0 - 0.1 x10E3/uL [facility] 06/10/2024 11:3 5 AM EST 06/10/2024 Madi Riggins MD LAB BLOOD ORDERABLES Final Res ult [facility] [address] [place] [address] * Uric Acid (06/10/2024 11:35 AM EST) Uric Acid 5.0 3.8 - 8.4 mg/dL [facility] Comment:Therapeutic target f or gout patients: <6.0 06/10/2024 11:3 5 AM EST 06/10/2024 Madi Riggins MD LAB BLOOD ORDERABLES Final Res ult [facility] [address] [place] [address] * (ABNORMAL) Phosphorus (06/10/2024 11:35 AM EST) Phosphorus 4.4(H) 2.8 - 4.1 mg/dL [facility] 06/10/2024 11:3 5 AM EST 06/10/2024 Madi Riggins MD LAB BLOOD ORDERABLES Final Res ult Performing Organization Address City/[facility]/ZIP Co de Phone Number [facility] [address] [place] [address] * Magnesium (06/10/2024 11:35 AM EST) Magnesium 2.3 1.6 - 2.3 mg/dL [facility] 06/10/2024 11:3 5 AM EST 06/10/2024 Madi Riggins MD LAB BLOOD ORDERABLES Final Res ult Performing Organization Address [facility] Co de Phone Number [facility] [address] [place] [address] * Ferritin (06/10/2024 11:35 AM EST) Ferritin 207 30 - 400 ng/mL [facility] 06/10/2024 11:3 5 AM EST 06/10/2024 Madi Riggins MD LAB BLOOD ORDERABLES Final Res ult Performing Organization Address City/[facility] Co de Phone Number [facility] [address] [place] [address] * (ABNORMAL) Comprehensive Metabolic Panel (06/10/2024 11:35 AM EST) Glucose 79 70 - 99 mg/dL [facility] BUN 48(H) 8 - 27 mg/dL [facility] Creatinine 2.50(H) 0.76 - 1.27 mg/dL [facility] eGFR CKD-EPI CR 2020 28(L) >59 mL/min/1.7 3 [facility] BUN/Creatinine Ratio 19 10 - 24 [facility] Sodium 138 134 - 144 mmol/L [facility] Potassium 4.9 3.5 - 5.2 mmol/L [facility] Chloride 99 96 - 106 mmol/L [facility] Bicarbonate (CO2) 19(L) 20 - 29 mmol/L [facility] Calcium 9.1 8.6 - 10.2 mg/dL [facility] Total Protein 7.2 6.0 - 8.5 g/dL [facility] Albumin 4.5 3.9 - 4.9 g/dL [facility] Globulin 2.7 1.5 - 4.5 g/dL [facility] Total Bilirubin 0.4 0.0 - 1.2 mg/dL [facility] Alkaline Phosphatase 76 44 - 121 IU/L [facility] AST (SGOT) 33 0 - 40 IU/L [facility] ALT (SGPT) 31 0 - 44 IU/L [facility] 06/10/2024 11:3 5 AM EST 06/10/2024 us Madi Riggins MD LAB BLOOD ORDERABLES Final Res ult [facility] [address] [place] [address] from Last 3 Months [place] [id number] [facility] [place] [id number] [facility] [place] [id number] Care Teams Optical Instrument Specialist Relationship Specialty Start Date End Date Ann Marie Boucher MD PCP - General Internal Medicine 05/10/23
--- OUTSIDE RECORDS SUMMARY | 2024-06-20 09:05 | XMS_ITS | Encounter Summary ---
Author Organization [facility] [place], Address [address] [place] [address] Phone Care Team Providers Care Corporate Tax Preparer Name Role Phone Ann Marie Boucher MD Primary Care Provider [phone] Encounter Details Date Type Department Care Team (Late st Contact Info) Description 06/10/2021 Documentation Only [facility] [address] [place] [address] Madi Riggins MD [address] [place] [address] [address] [place] [place] [address] Social History Tobacco Use Types Packs/Day Years [...] on file Sexual Orientation Not on file documented as of this encounter Plan of Treatment Upcoming Encounters Date Type Department Care Team (Late st Contact Info) Description 12/18/2024 1:45 PM EDT Office Visit [facility] [address] [place] [place] [address] Madi Riggins MD [address] [place] [address] [address] [place] [address] documented as of this encounter Visit Diagnoses Not on filedocumented in this encounter Care Teams Corporate Tax Preparer Relationship Specialty Start Date End Date Ann Marie Boucher MD PCP - General Internal Medicine 05/10/23 documented as of this encounter
--- OUTSIDE RECORDS SUMMARY | 2024-06-20 09:05 | XMS_ITS | Encounter Summary ---
Author Organization [facility], Address [address] [place] [address] Phone Care Team Providers Care Track Repair Supervisor Name Role Phone Ann Marie Boucher MD Primary Care Provider [phone] Encounter Details Date Type Department Care Team (Late st Contact Info) Description 06/16/2021 Documentation Only [facility] [address] [place] [address] Madi Riggins MD [address] [place] [address] Dr. [place]án [place] [address] Social History Tobacco Use Types [...] Visit [facility] [address] [place] [address] Madi Riggins MD [address] [place] [address] Dr[address] [place]án [place] [address] documented as of this encounter Visit Diagnoses Not on filedocumented in this encounter Care Teams Track Repair Supervisor Relationship Specialty Start Date End Date Ann Marie Boucher MD PCP - General Internal Medicine 05/10/23 documented as of this encounter
--- OUTSIDE RECORDS SUMMARY | 2024-06-20 09:06 | XMS_ITS | Clinical Summary ---
Author Organization [facility] Address [address] [place] [id number] Care Team Providers Care Sales Associate Fishing Name Role Phone Ann Marie Boucher MD Primary Care Provider [phone] Allergies Active Allergy Reactions Criticality Noted Date Comments Diltiazem Other (See Comments) 09/27/2016 Numbnes of feet Lisinopril 11/01/2005 cough Oxycodone Other (See Comments) 06/14/2019 Simvastatin Other (See Comments) 12/14/2010 Pain on feet Medications Medication Sig Dispensed Refills Start Date End Date Status alendronate (FOSAMAX) 35 MG tablet TAKE 1 TABLET EVERY 7 DAYS 0 10/25/2016 Active fluticasone (FLONASE) 50 MCG/ACT nasal spray USE 2 SPRAYS IN EACH NOSTRIL DAILY 0 10/22/2014 Active levothyroxine (SYNTHROID, LEVOXYL) tablet 125 mcg TAKE 1 TABLET DAILY 0 05/09/2017 Active SYNTHROID 125 MCG tablet 0 08/07/2017 Active losartan (COZAAR) 100 MG tablet TAKE 1 TABLET DAILY 0 06/01/2017 Active metoprolol succinate (TOPROL-XL) 24 hr tablet 100 mg TAKE 1 TABLET TWICE A DAY 0 05/09/2017 Active TOPROL XL 100 MG 24 hr tablet 0 08/07/2017 Active Multiple Vitamins tablet Take by mouth. 0 Active niacin (NIASPAN) ER capsule 500 mg Take by mouth. 0 Active pravastatin (PRAVACHOL) tablet 80 mg Take 80 mg by mouth. 0 05/02/2017 Active pravastatin (PRAVACHOL) tablet 80 mg 0 07/31/2017 Active aspirin (SB LOW DOSE ASA EC) 81 MG EC tablet Take by mouth. 0 11/01/2005 Active torsemide (DEMADEX) 10 MG tablet 0 07/27/2017 Active traMADol (ULTRAM) 50 MG tablet Take 50 mg by mouth every 6 (six) hours as needed. for pain 5 07/29/2017 Active acetaminophen (TYLENOL EXTRA STRENGTH) 500 MG tablet Take 500 mg by mouth. 0 10/24/2019 Active allopurinol (ZYLOPRIM) 100 MG tablet TAKE 2 TABLETS ONCE DAILY 0 07/17/2018 Active colchicine 0.6 MG tablet Take 0.6 mg by mouth. 0 Active Diclofenac Sodium 1 % GEL APPLY 1 GRAM TO SKIN TWICE A DAY 0 07/06/2020 Active gabapentin (NEURONTIN) 300 MG capsule 0 05/28/2020 Active sodium bicarbonate 650 MG tablet Take 650 mg by mouth. 0 Active carvedilol (COREG) 25 MG tablet TAKE 1 TABLET BY MOUTH TWICE A DAY WITH FOOD 0 08/07/2021 Active Active Problems Problem Noted Date Diagnosed Date Hip joint stiffness, bilateral 08/14/2018 PE (physical exam), annual 08/15/2017 Social History Tobacco Use Types Packs/Day Years Used Date Smoking Tobacco: Never Assessed Sex and Gender Information Value Date Recorded Sex Assigned at Not on file Gender Identity Not on file Sexual Orientation Not on file Job Start Date Occupation Industry Not on file Not on file Not on file Last Filed Vital Signs Vital Sign Reading Time Taken Comments Blood Pressure - - Pulse - - Temperature - - Respiratory Rate - - Oxygen Saturation - - Inhaled Oxygen Concentration - - Weight 74.8 kg (165 lb) 08/15/2017 8:26 AM EDT Height 172.7 cm (5' 8 ) 08/15/2017 8:26 AM EDT Body Mass Index 25.09 08/15/2017 8:26 AM EDT Plan of Treatment Health Maintenance Due Date Last Done Comments Hepatitis C Screening 1960 Depression Screening 1973 Preventative Health Evaluation 1979 Colon Cancer Screening (Colonoscopy) 2006 Shingrix-Zoster Vaccine (1 of 2) 2011 DTap / Tdap / Td (4 - Td or Tdap) 12/14/2020 12/14/2010, 11/01/2005, 06/06/2000 COVID-19 Vaccine (4 - 2023- season) 2024 02/23/2021, 08/08/2020, 07/18/2020 Influenza Vaccine (#1) 2024 0, 01/17/2019, 04/03/2017, Additional history exists RSV Adult > 60+ Yrs or (1 - 1-dose 75+ series) 2036 Hepatitis B Vaccines Aged Out No long er eligible based on patient's age to complete this topic Pneumococcal Vaccine Aged Out No long er eligible based on patient's age to complete this topic RSV Ped < 20 months Aged Out No longe r eligible based on patient's age to complete this topic Care Teams Sales Associate Fishing Relationship Specialty Start Date End Date Ann Marie Boucher MD [address] [place] [address] PCP - General Internal Medicine 08/31/21
--- OUTSIDE RECORDS SUMMARY | 2024-06-20 09:06 | XMS_ITS | Encounter Summary ---
Author Organization [facility] Address [address] [place] [address] Phone Care Team Providers Care Tumor Registrar Name Role Phone Ann Marie Boucher MD Primary Care Provider [phone] Reason for Visit * Reason Comments Med Refill Encounter Details Date Type Department Care Team (Late st Contact Info) Description 07/23/2020 Refill [facility] [address] [place] [address] Gerry Enriquez MD [address] Iván [place] [address] Social History Tobacco Use Types Packs/Day Years Used Date Smoking Tobacco: Never Alcohol Use Standard Drinks/Week Comments [...] Encounters Date Type Department Care Team (Late Contact Info) Description 12/18/2024 1:45 PM EDT Office Visit [facility], [address] [place] [address] Madi Riggins MD [address]án [place] [address] documented as of this encounter Visit Diagnoses Not on filedocumented in this encounter Care Teams Tumor Registrar Relationship Specialty Start Date End Date Ann Marie Boucher MD PCP - General Internal Medicine 05/10/23 documented as of this encounter
--- OUTSIDE RECORDS SUMMARY | 2024-06-20 09:06 | XMS_ITS | Encounter Summary ---
Author Organization [facility] Address [address] [place] [address] Phone Care Team Providers Care Sand Buffer Name Role Phone Ann Marie Boucher MD Primary Care Provider [phone] Reason for Visit * Reason Comments Med Refill Encounter Details Date Type Department Care Team (Late st Contact Info) Description 08/28/2020 Refill [facility] [address] [place] [address] Gerry Enriquez MD [address] Iván [place] [address] Social History Tobacco Use Types [...] Office Visit [facility], [address] [address] Madi Riggins MD [address] Iván [place] [address] documented as of this encounter Visit Diagnoses Not on filedocumented in this encounter Care Teams Sand Buffer Relationship Specialty Start Date End Date Ann Marie Boucher MD PCP - General Internal Medicine 05/10/23 documented as of this encounter
--- OUTSIDE RECORDS SUMMARY | 2024-06-20 09:06 | XMS_ITS | Encounter Summary ---
Author Organization [employer] Address [address] [facility] [address] [place] [address] Care Team Providers Care Siding Applicator Name Role Phone Rakel Lei SPEEDER OPERATOR Primary Care Provider [phone] Encounter Details Date Type Department Care Team (Late st Contact Info) Description 04/23/2024 Orders Only [facility] [address] [place] [address] Rakel Lei FNP [address] [place] [address] Social History Tobacco Use Types Packs/Day Years Used Date Smoking Tobacco: Former Cigarettes 7 1984 Smokeless Tobacco: Never Alcohol Use Standard Drinks/Week Comments Not Currently 0 (1 standard drink = 0.6 oz pur e alcohol) Housing Stability Answer Date Recorded What is your housing situation today? I have sammie olvera 10/04/[address] you li ve. Do you have problems with any of the following? None of the above 10/04/2023 Food Insecurity Answer Date Recorded Within the past 12 months, y ou worried that your food would run out before you got money to buy more: Never True 10/04/2023 Within the past 12 months,th e food you bought just didn't last and you didn't have enough money to get more: Never True Transportation Answer Date Recorded In the past 12 months, has l ack of transportation kept you from medical appts, meetings, work or from getting things needed for daily living? No 10/04/2023 Utilities Answer Date Recorded In the past 12 months, has t he electric, gas, oil or water company threatened to shut off services in your home? No 10/04/2023 Depression Answer Date Recorded Patient Health Questionnaire-2 Score 0 10/04/2023 Sex and Gender Information Value Date Recorded Sex Assigned at Male 07/01/2022 4:44 PM EST Legal Sex Male 8:40 PM EDT Gender Identity Male 07/01/2022 4:44 PM EST Sexual Orientation Straight 07/15/2022 9: 39 AM EST Occupation Industry Job Start Date Job End Date Retired Not on file Not on file Not on file documented as of this encounter Plan of Treatment Upcoming Encounters Date Type Department Care Team (Late st Contact Info) Description 12/23/2024 8:20 AM EDT Office Visit [facility] [address] [place] [address] Rakel Lei SPEEDER OPERATOR [address] [place] [address] documented as of this encounter Procedures Procedure Name Priority Date/Time Associated Diagnosis Comments HEPATITIS B SURFACE ANTIGEN Routine 04/22/2024 1:46 PM EST HM HIV 1/2 ANTIGEN AND ANTIBODY Routine 04/22/2024 1:46 PM EST HM HEPATITIS C ANTIBODY Routine 04/22/2024 1:45 PM EST HEPATITIS B ANTIBODY, QUANT Routine 04/22/2024 1:45 PM EST HEPATITIS B SURFACE ANTIBODY, QUALITATIVE Routine 04/22/2024 1:44 PM EST documented in this encounter Results * Hepatitis B Surface Antigen (04/22/2024 1:46 PM EST) Blood Venous blood specimen / Unknown [facility] LAB BLOOD ORDERABLES Ca l Result * HM HIV 1/2 Antigen and Antibody (04/22/2024 1:46 PM EST) [facility] HEALTH MAINTENANCE Final Result * HM Hepatitis C Antibody (04/22/2024 1:45 PM EST) Blood [facility] HEALTH MAINTENANCE Final Result * Hepatitis B Antibody, Quant (04/22/2024 1:45 PM EST) Rakel Lei [facility] LAB BLOOD ORDERABLES Ca l Result * Hepatitis B Surface Antibody, Qualitative (04/22/2024 1:44 PM EST) Blood Venous blood specimen / Unknown Rakel Lei [facility] LAB BLOOD ORDERABLES Ca l Result documented in this encounter Visit Diagnoses Not on filedocumented in this encounter Care Teams Siding Applicator Relationship Specialty Start Date End Date Rakel Lei FNP [address] [place] [address] PCP - General Family Medicine 07/12/22 documented as of this encounter
--- OUTSIDE RECORDS SUMMARY | 2024-06-20 09:06 | XMS_ITS | Encounter Summary ---
Author Organization [employer] Address [address] [facility] [address] [place] [address] Care Team Providers Care Residential Housekeeper Name Role Phone Rakel Lei [facility] Primary Care Provider [phone] Encounter Details Date Type Department Care Team (Late st Contact Info) Description 07/18/2023 Telephone [place] [facility] [address] [place] [address] Lacie Carrillo, MAYKEL Social History Tobacco Use Types Packs/Day Years Used Date Smoking Tobacco: Former Cigarettes 7 1984 Alcohol Use Standard Drinks/Week Comments Not Currently 0 (1 standard drink = 0.6 oz pur e alcohol) Sex and Gender Information Value Date Recorded Sex Assigned at Male 07/01/2022 4:44 PM EST Legal Sex Male 8:40 PM EDT Gender Identity Male 07/01/2022 4:44 PM EST Sexual Orientation Straight 07/15/2022 9: 39 AM EST Occupation Industry Job Start Date Job End Date Retired Not on file Not on file Not on file documented as of this encounter Miscellaneous Notes * Telephone Encounter - Lacie Carrillo RN - 07/18/2023 3:54 PM EDT Agustina GOINS form House calls is reporting high BP's at visit today. 158/90, 150/80. Pt is asymptomatic. Agustina reports the pt's 2nd and 3rd toes are swollen. Pt reports to dropping something on foot. Pt is reporting no pain- can't feel feet due to neuropathy. Pt has a neuro appt 07/[address] Mcnulty for left sided back pain- referral was placed 07/03 Sending FYI to pcp to update. documented in this encounter Plan of Treatment Upcoming Encounters Date Type Department Care Team (Late st Contact Info) Description 12/23/2024 8:20 AM EDT Office Visit [facility] [address] [place] [address] Rakel Lei FNP [address] [place] [address] documented as of this encounter Visit Diagnoses Not on filedocumented in this encounter Care Teams Residential Housekeeper Relationship Specialty Start Date End Date Rakel Lei FNP [address] [place] [address] PCP - General Family Medicine 07/12/22 documented as of this encounter
--- OUTSIDE RECORDS SUMMARY | 2024-06-20 09:06 | XMS_ITS | Encounter Summary ---
Author Organization [facility], Address [address] [place] [address] Phone Care Team Providers Care Forestry Scientist Name Role Phone Ann Marie Boucher MD Primary Care Provider Encounter Details Date Type Department Care Team (Late st Contact Info) Description 06/12/2024 2:30 PM EST Office Visit [facility], [address] [place] [address] Madi Riggins MD [address] [place] [address] [address] Iván [place] [address] Chronic kidney disease, stage 4 (severe) (HCC) (Primary Dx) Social History Tobacco Use Types Packs/Day Years [...] on file documented as of this encounter Progress Notes * Madi Riggins MD - 06/12/2024 2:30 PM EST Images from the original note were not included. PATIENT: Javier Caraballo : 1960 ENCOUNTER: 06/12/2024 PCP: Ann Marie Boucher MD HPI: Javier Caraballo is a 62 y.o. year old male with a history of analgetic nephropathy CKD IV. Was seen byPCP and lab work remarkable for worsening of renal function: Cr was up to 3.5 mg/dL. He was startedon torsemide some time ago by Dr. Enriquez for LE edema. No edema lately. Denies urinary symptoms, denies taking NSAIDs. We held losartan and torsemide, weight remained stable, no edema, repeat Scr was2.5 mg/dL. Improved to 1.7-1.9 mg/dL. Losartan was restarted at 50 mg a day. Was struggling with sinusitis-like symptoms, tried zpack without much response. Now on steroids and that seem to be makingdifference. On 60 mg of prednisone for 14 days. Told me that PCP considering temporal artery biopsy. BP is better controlled with recent changes, now on coreg 25 mg bid and losartan 100 mg daily and laos po torsemide. Came today for the follow up, unfortunately his father and he feels very stressed. Serum creatinine leveled off at 2.0-2.2. 06/13/22; came today for the follow up, states that BP at home within normal range, was 122/77 this am, always high in the office 10/31/22: came today for the follow up, brought BP log book with him BP at home is actually very good 112/67-128/77, BP is usually high in the office, tolerating farxiga well 05/15: came today for the follow up, feels well, denies complaints, sattes that BP at home 120-140/80. Repeat blood work, creatinine is up to 2.8 mg/dL. BP is always high in the office. 09/17: came for the follow up, recent labs: creatinine close to baseline 2.6 mg/dL, compliant with meds and low-salt diet, unfortunately BP is still on a high side 150-160/90 01/24/24: came for the follow up, doing ok, labwork remarkable for hyponatremia, Na 130, creatinine is at baseline 2.5 mg/L. Drinks 6 bottles of water a day 06/12/24: Jaron came today for the follow-up. Overall doing well. Drinking that much water and repeat serum sodium is normal. Recent labs also look very stable creatinine 2.5 mg/dL. No significant proteinuria. Blood pressure seems to be well-controlled. Patient told me that co-pay for Farxiga now is over $500. It may become limiting factor. ROS: Constitutional: Negative for chills and fever. HENT: Negative for sore throat. Respiratory: Negative for cough and shortness of breath. Cardiovascular: Negative for chest pain, palpitations and PND. Gastrointestinal: Negative for abdominal pain, constipation, diarrhea, nausea and vomiting. Genitourinary: Negative for dysuria and hematuria. Musculoskeletal: Negative for back pain and myalgias. Skin: Negative for rash. Neurological: Negative for dizziness, focal weakness and headaches. Psychiatric/Behavioral: Negative for depression. All other systems reviewed and are negative. PAST MEDICAL HISTORY: Patient Active Problem List Diagnosis Date Noted Chronic kidney disease, stage 3 (moderate) 06/14/2019 Microalbuminuria Serum creatinine above reference range Hypercholesterolemia Essential hypertension Edema of lower extremity Anemia PAST SURGICAL HISTORY: Past Surgical History: Procedure Laterality Date OTHER SURGICAL HISTORY SOCIAL HISTORY: Social History Tobacco Use Smoking status: Never Smokeless tobacco: Never Substance Use Topics Alcohol use: Yes Comment: Alcoholic Drinks/day: Occasional social drink FAMILY HISTORY: Family History Problem Relation Age of Onset Hypertension Father Lung cancer Father Dementia Mother beginning stages Hypertension Brother Hypertension Sibling brother Cancer Father lung MEDICATIONS: Outpatient Encounter Medications as of 06/12/2024 Medication Sig Dispense Refill Dapagliflozin Propanediol (Farxiga) 10 MG tablet Take 10 mg by mouth 1 (one) time each day in the morning 90 tablet 3 Dapagliflozin Propanediol (Farxiga) 10 MG tablet Take 10 mg by mouth 1 (one) time each day in the morning 30 tablet 11 alendronate (FOSAMAX) 35 MG tablet Take 35 mg by mouth every 7 (seven) days allopurinol (ZYLOPRIM) 100 MG tablet amLODIPine (NORVASC) 5 MG tablet Take 1 tablet (5 mg total) by mouth 1 (one) time each day 30 tablet 5 aspirin (ST JENNIFER) 81 MG EC tablet Take 81 mg by mouth 1 (one) time each day ATORVASTATIN CALCIUM PO Take by mouth carvedilol (COREG) 25 MG tablet TAKE 1 TABLET BY MOUTH TWICE A DAY WITH FOOD 180 tablet 3 ferrous sulfate 325 (65 Fe) MG EC tablet Take 325 mg by mouth gabapentin (NEURONTIN) 300 MG capsule Take 600 mg by mouth twice a day GaviLyte-G 236 g solution levothyroxine (SYNTHROID, LEVOTHROID) 125 MCG tablet Take 125 mcg by mouth 1 (one) time each day losartan (COZAAR) 100 MG tablet TAKE 1 TABLET BY MOUTH 1 TIME EACH DAY. 90 tablet 3 pravastatin (PRAVACHOL) 80 MG tablet Take 80 mg by mouth 1 (one) time each day sodium bicarbonate 650 MG tablet Take 650 mg by mouth 1 (one) time each day SODIUM BICARBONATE PO Take 650 mg by mouth torsemide (DEMADEX) 10 MG tablet Take 1 tablet (10 mg total) by mouth 1 (one) time each day 30 tablet 3 traMADol (ULTRAM) 50 MG tablet Take 100 mg by mouth twice a day No facility-administered encounter medications on file as of 06/12/2024. ALLERGIES: is allergic to lisinopril, diltiazem, oxycodone, and simvastatin. PHYSICAL EXAM: Blood pressure 130/80. Constitutional: No apparent distress HEENT Mouth/Throat: Oropharynx is clear and moist. Eyes: Conjunctivae are normal. No scleral icterus. Neck: Neck supple, no JVD, carotids 2+ Cardiovascular: Normal rate, no friction rub. Pulmonary/Chest: Effort normal, breath sounds normal, no wheezes or rales. Abdominal: Soft, non-tender, without masses or ascites. Musculoskeletal: Normal range of motion without pain. Skin: Skin is warm and dry. No rash noted. No erythema. Psychiatric: Normal mood. Extremities: Edema 0 LABS: Chemistry Lab Units 06/10/24 1135 01/16/24 1115 09/11/23 1249 05/11/23 1533 10/21/22 1534 CREATININE mg/dL 2.50* 2.53* 2.6* 2.8* 2.3* BUN mg/dL 48* 54* 62* 54* 44* POTASSIUM mmol/L 4.9 4.8 4.1 4.0 4.6 SODIUM mmol/L 138 130* 139 135 139 CO2 mmol/L 19* 22 20* 27 25 CHLORIDE mmol/L 99 93* 99 98 102 ALBUMIN g/dL 4.5 4.1 4.1 4.4 4.4 EGFRNAFR ML/MIN/1.73 M2 -- -- -- 25 32 HEMOGLOBIN A1C % -- -- -- -- 5.6 WBC AUTO x10E3/uL 6.4 4.2 6.2 5.9 6.8 HEMATOCRIT % 37.7 35.9* 39.0* 37.7* 37.8* HEMOGLOBIN g/dL 13.0 11.8* 13.0* 12.3* 12.5* PLATELETS AUTO x10E3/uL 278 205 219 217 221 Bone Mineral Lab Units 06/10/24 1135 01/16/24 1115 09/11/23 1249 05/11/23 1533 10/21/22 1534 CALCIUM mg/dL 9.1 8.4* 8.5* 8.7 9.1 PHOSPHORUS mg/dL 4.4* 4.2* 4.5 3.9 3.8 ALK PHOS IU/L 76 64 59 62 84 PTH pg/mL -- 165* -- 195* 186* VITAMIN D NG/ML -- -- -- 53.3* 49.9 VIT D 25 HYDROXY ng/mL 48.1 -- -- -- -- Urine Lab Units 09/11/23 1249 05/11/23 1533 10/21/22 1536 ALB MG/G CREAT UR mg/g creat 29 Unable to calculate 52.4 Unable to calculate 57.5 ASSESSMENT: 1. Chronic kidney disease, stage 4 (severe) (HCC) 2. HTN 3. Iron deficiency anemia 4. Minimal albuminuria 5. Hyponatremia - continue amlodpine 5 mg daily - losartan 100 mg daily - continue coreg 25 mg bid - torsemide 10 mg daily - continue Farxiga 10 mg daily, will try to get prior authorization - avoid NSAIDs - blood count is normal - see again in 6 month with labs Orders Placed This Encounter CBC and differential Comprehensive metabolic panel Iron Panel (Fe, TIBC, TSAT) Ferritin Magnesium Phosphorus PTH, intact Uric acid Urinalysis with microscopic Urine Albumin / Creatinine Ratio Vitamin D 25 hydroxy documented in this encounter Plan of Treatment Upcoming Encounters Date Type Department Care Team (Late st Contact Info) Description 12/18/2024 1:45 PM EDT Office Visit [facility], [address] [place] [address] Madi Riggins MD [address] [place] [address] Scheduled Orders Name Type Priority Associated Diagnoses Orde r Schedule CBC and differential Lab Routine Chronic kidney disease, stage 4 (severe) (HCC) Expected: 06/12/2024, Expires: 07/10/2025 Comprehensive metabolic panel Lab Routine Chronic kidney disease, stage 4 (severe) (HCC) Expected: 06/12/2024, Expires: 07/10/2025 Iron Panel (Fe, TIBC, TSAT) Lab Routine Chronic kidney disease, stage 4 (severe) (HCC) Expected: 06/12/2024, Expires: 07/10/2025 Ferritin Lab Routine Chronic kidney disease, stage 4 (severe) (HCC) Expected: 06/12/2024, Expires: 07/10/2025 Magnesium Lab Routine Chronic kidney disease, stage 4 (severe) (HCC) Expected: 06/12/2024, Expires: 07/10/2025 Phosphorus Lab Routine Chronic kidney disease, stage 4 (severe) (HCC) Expected: 06/12/2024, Expires: 07/10/2025 PTH, intact Lab Routine Chronic kidney disease, stage 4 (severe) (HCC) Expected: 06/12/2024, Expires: 07/10/2025 Uric acid Lab Routine Chronic kidney disease, stage 4 (severe) (HCC) Expected: 06/12/2024, Expires: 07/10/2025 Urinalysis with microscopic Lab Routine Chronic kidney disease, stage 4 (severe) (HCC) Expected: 06/12/2024, Expires: 07/10/2025 Urine Albumin / Creatinine Ratio Lab Routine Chronic kidney disease, stage 4 (severe) (HCC) Expected: 06/12/2024, Expires: 07/10/2025 Vitamin D 25 hydroxy Lab Routine Chronic kidney disease, stage 4 (severe) (HCC) Expected: 06/12/2024, Expires: 07/10/2025 documented as of this encounter Visit Diagnoses Diagnosis Chronic kidney disease, stage 4 (severe) (HCC)- Primary documented in this encounter Care Teams Forestry Scientist Relationship Specialty Start Date End Date Ann Marie Boucher MD PCP - General Internal Medicine 05/10/23 documented as of this encounter
--- OUTSIDE RECORDS SUMMARY | 2024-06-20 09:06 | XMS_ITS | Encounter Summary ---
Author Organization [facility] Address [address] [place] [address] Phone Care Team Providers Care Hand Spring Repairer Name Role Phone Ann Marie Boucher MD Primary Care Provider Reason for Visit * Reason Comments Med Refill Encounter Details Date Type Department Care Team (Late st Contact Info) Description 05/25/2024 [facility]ill [facility] [address] [place] [address] Madi Riggins MD [address] [place] [address] Social History Tobacco Use Types [...] Office Visit [facility] [address] [place] [address] Madi Riggins MD [address]án [place] [address] documented as of this encounter Visit Diagnoses Not on filedocumented in this encounter Care Teams Hand Spring Repairer Relationship Specialty Start Date End Date Ann Marie Boucher MD PCP - General Internal Medicine 05/10/23 documented as of this encounter
--- OUTSIDE RECORDS SUMMARY | 2024-06-20 09:06 | XMS_ITS | Encounter Summary ---
Author Organization [employer] Address [address] [place] [address] 7[address] [place] [address] Care Team Providers Care Facilities Coordinator Name Role Phone aRkel Lei REFRIGERATION MANAGER Primary Care Provider [phone] Reason for Visit * Reason Comments Follow-up Encounter Details Date Type Department Care Team (Latest Contact Info) Description 06/14/2024 9:40 AM EST Office Visit [facility] [address] [place] [address] Rakel Lei FNP [address] [place] [address] CKD (chronic kidney disease), stage IV (CMS/HCC) (Primary Dx); Anemia in stage 4 chronic kidney disease (CMS/HCC) (CMS/HCC); Sciatica associated with disorder of lumbar spine; Acquired hypothyroidism Social History Tobacco Use Types Packs/Day Years Used Date Smoking Tobacco: Former Cigarettes 1 7 - 1984 Smokeless Tobacco: Never Alcohol Use Standard [...] on file documented as of this encounter Last Filed Vital Signs Vital Sign Reading Time Taken Comments Blood Pressure 122/84 06/14/2024 9:42 AM EST Pulse 56 06/14/2024 9:42 AM EST Temperature 36.4 ??C (97.5 ??F) 06/14/2024 9:42 AM ES T Respiratory Rate - - Oxygen Saturation - - Inhaled Oxygen Concentration - - Weight 68.9 kg (152 lb) 06/14/2024 9:42 AM EST Height 172.7 cm (5' 8 ) 06/14/2024 9:42 AM EST Body Mass Index 23.11 06/14/2024 9:42 AM EST documented in this encounter Progress Notes * Rakelyolanda Lei, LUIS - 06/14/2024 9:40 AM EST Subjective Javier Caraballo is a 63 y.o. male who presents for: Chief complaint Issues with medication prescriptions and follow-up on kidney health. History of present illness - Issues with Farxiga, involving top lift trimmer, with a co-payment increase to $561 for 90 days. - Pharmacy error with amlodipine prescription, received 30 days supply instead of 90 days. Patient plans to call pharmacy to rectify - Slight anemia noted, with all other numbers within range, according to top lift trimmer - Stress at home related to family issues, affecting sleep. He is the primary caregiver for his mom - Back condition improved, able to stand without discomfort. - Gained 10 lbs recently. Current medications - Farxiga - Amlodipine Health Maintenance Topic Date Due Colorectal Cancer Screening Never done Pneumococcal Vaccine: 50+ Years (1 of 1 - PCV) Never done COVID-19 Vaccine (2023- season) 2024 (Originally 05/10/2024) Depression Screening 10/03/2024 SDOH Screening 10/03/2024 Tobacco Screening 04/26/2025 Alcohol/Substance Use Screening 04/26/2025 Lipid Panel 10/03/2028 DTaP/Tdap/Td Vaccines (6 - Td or Tdap) 10/03/2033 RSV Patients and Patients Aged 60 years or older (1 - 1-dose 75+ series) 2036 Influenza Vaccine Completed Zoster Vaccines Completed HIV Screening Completed Hepatitis C Screening Completed RSV under 20 months Aged Out HIB Vaccines Aged Out Hepatitis B Vaccines Aged Out IPV Vaccines Aged Out Hepatitis A Vaccines Aged Out Meningococcal Vaccine Aged Out Rotavirus Vaccines Aged Out HPV Vaccines Aged Out Current Outpatient Medications Medication Sig Dispense Refill allopurinol (Zyloprim) 100 MG tablet Take 2 tablets (200 mg) by mouth Once per day for 360 doses. 90 days 180 tablet 3 amLODIPine (Norvasc) 5 MG tablet Take 5 mg by mouth Once per day. amoxicillin (Amoxil) 500 MG capsule Takes as needed prior to dental appts. aspirin 81 MG EC tablet Take 1 tablet by mouth in the morning. carvedilol (Coreg) 25 MG tablet Take 25 mg by mouth. Take with food. gabapentin (Neurontin) 300 MG capsule TAKE 2 CAPSULES(600 MG) BY MOUTH TWICE DAILY 360 capsule 1 levothyroxine (Synthroid, Levoxyl) 125 MCG tablet TAKE 1 TABLET(125 MCG) BY MOUTH IN THE MORNING 90tablet 2 losartan (Cozaar) 100 MG tablet TAKE 1 TABLET BY MOUTH 1 TIME EACH DAY. Multiple Vitamin (Multi Vitamin) tablet 1 tablet in the morning. pravastatin (Pravachol) 80 MG tablet Take 1 tablet (80 mg) by mouth Once per day for 360 doses. 90 days 90 tablet 3 sodium bicarbonate 650 MG tablet as directed Orally torsemide (Demadex) 10 MG tablet dapagliflozin (Farxiga) 10 MG Take 10 mg by mouth in the morning. (Patient not taking: Reported on 06/14/2024) fluticasone (Flonase) 50 MCG/ACT nasal spray 1 spray in the morning. (Patient not taking: Reported on 06/14/2024) No current facility-administered medications for this visit. PAST MEDICAL, SURGICAL, SOCIAL AND FAMILY HISTORY: Reviewed and updated MEDICATIONS AND ALLERGIES: Reviewed and updated ROS: Ten system review negative, with the exception of those noted in the HPI and A&P PHYSICAL EXAMINATION: GENERAL: Well-appearing male in no acute distress. HEENT: No scleral icterus. Moist mucous membranes. No nasal discharge. PULMONARY: Breathing comfortably on room air. CTAB CARDIAC: RRR MUSCULOSKELETAL: Gait appropriate and symmetric. EXTREMITIES: Warm and well perfused. NEUROLOGIC: Motor function grossly intact. PERTINENT LABORATORY DATA: reviewed PERTINENT IMAGING: Reviewed ASSESSMENT AND PLAN: Plan - Include vitamin B and folate levels in the next lab draw to assess for potential vitamin B deficiency, which may be contributing to variations in blood cell size. -Patient stable from renal perspective - Schedule a follow-up appointment after December 18, 2024, to review ongoing health status and any new lab results. Problem List Items Addressed This Visit Acquired hypothyroidism Overview Last TSH Stable on levothyrpxine 125mcg daily Anemia in chronic kidney disease Overview Stable labs in Jan CKD (chronic kidney disease), stage IV (CMS/HCC) - Primary Overview January visit- patient stable Relevant Orders Vitamin B12 Folate Sciatica associated with disorder of lumbar spine Overview Stable at this time, post op, no concerns for pain Will follow-up to help with colo There are no discontinued medications. There are no Patient Instructions on file for this visit. Follow up in about 6 months (around 12/12/2024) for chronic disease management . documented in this encounter Plan of Treatment Upcoming Encounters Date Type Department Care Team (Late st Contact Info) Description 12/23/2024 8:20 AM EDT Office Visit [facility] [address] [place] [address] Rakel Lei FNP [address] [place] [address] Scheduled Orders Name Type Priority Associated Diagnoses Orde r Schedule Vitamin B12 Lab Routine CKD (chronic kidney disease), stage IV (CMS/HCC) Expected: 06/14/2024 (Approximate), Expires: 06/14/2025 Folate Lab Routine CKD (chronic kidney disease), stage IV (CMS/HCC) Expected: 06/14/2024 (Approximate), Expires: 06/14/2025 documented as of this encounter Visit Diagnoses Diagnosis CKD (chronic kidney disease), stage IV (CMS/HCC)- Primary Chronic kidney disease, Stage IV (severe) Anemia in stage 4 chronic kidney disease (CMS/HCC) (CMS/HCC) Sciatica associated with disorder of lumbar spine Acquired hypothyroidism Unspecified hypothyroidism documented in this encounter Care Teams Facilities Coordinator Relationship Specialty Start Date End Date Rakel Lei FNP [address] [place] [address] PCP - General Family Medicine 07/12/22 documented as of this encounter
--- OUTSIDE RECORDS SUMMARY | 2024-06-20 09:06 | XMS_ITS | Clinical Summary ---
Author Organization [employer] Address [address] [place] [address] 7t [place] [address] Care Team Providers Care Mold Tooler Name Role Phone Rakel Lei [facility] Primary Care Provider [phone] Allergies Active Allergy Reactions Criticality Noted Date Comments Diltiazem Other 09/27/2016 Lisinopril Cough High 11/01/2005 Oxycodone Other 06/14/2019 Simvastatin 12/14/2010 Pain in his feet Medications Multiple Vitamin (Multi Vitamin) tablet 1 tablet in the morning. Active sodium bicarbonate 650 MG tablet as directed Orally Active aspirin 81 MG EC tablet Take 1 tablet by mouth in the morning. 6 Active fluticasone (Flonase) 50 MCG/ACT nasal spray 1 spray in the morning. Active losartan (Cozaar) 100 MG tablet TAKE 1 TABLET BY MOUTH 1 TIME EACH DAY. 3 Active carvedilol (Coreg) 25 MG tablet Take 25 mg by mouth. Take with food. 2 Active torsemide (Demadex) 10 MG tablet 2 Active dapagliflozin (Farxiga) 10 MGIndications:Chron ic Renal Disease Take 10 mg by mouth in the morning. Active amLODIPine (Norvasc) 5 MG tablet Take 5 mg by mouth Once per day. 4 09/18/19 25 Active amoxicillin (Amoxil) 500 MG capsule Takes as needed prior to dental appts. 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 90 days 180 tablet 3 4 09/29/19 25 Active pravastatin (Pravachol) 80 MG tabletIndications:H ypercholesteremia Take 1 tablet (80 mg) by mouth Once per day for 360 doses. 90 days 90 tablet 3 4 09/29/19 25 Active levothyroxine (Synthroid, Levoxyl) 125 MCG tabletIndications:A cquired hypothyroidism TAKE 1 TABLET(125 MCG) BY MOUTH IN THE MORNING 90 tablet 2 4 Active gabapentin (Neurontin) 300 MG capsuleIndications: Neuralgia TAKE 2 CAPSULES(600 MG) BY MOUTH TWICE DAILY 360 capsule 1 4 Active Active Problems Problem Noted Date Diagnosed Date Chronic left SI joint pain 07/26/2023 Overview (07/26/2023): Images from the original note were not included. 07/21/23 [facility]: Spinal stenosis of lumbar region 07/03/2023 Overview (02/06/2024): Working with Dr. Gandhi and Dr. Rivera CKD (chronic kidney disease), stage IV Overview (02/06/2024): January visit- patient stable Mixed hyperlipidemia 06/05/2023 Overview (10/04/2023): Currently on pravastatin 80mg Component Ref Range & Units 4 mo ago Cholesterol, Total (<200) MG/DL 213 High Triglyceride (mg/dL) in Serum/Plasma (<150) MG/DL 105 HDL Cholesterol (>39) MG/DL 62 LDL Cholesterol, Calculated (0-130) MG/DL 130 Non HDL Chol. (LDL+VLDL) (<160) MG/DL 151 Sciatica associated with disorder of lumbar spin e 06/05/2023 Overview (07/03/2023): ~2011 s/p L4-L5 posterior spinal decompression and fusion. Sciatica pain non improving with conservative measures over the past year, continues with left leg foot and leg numbness. Pain currently managed with tylenol, gabapentin, warm pack, massage. Advised avoid activities that back pain ie- twisting/bending/lifting/sitting. MRI shows mod to severe stenosis lumbar region. Referral to PT placed- pt prefers home PT. Referral placed for neurosurg eval. Acquired hypothyroidism 07/01/2022 Overview (06/05/2023): Last TSH Stable on levothyrpxine 125mcg daily Anemia in chronic kidney disease 07/01/2022 Overview (02/06/2024): Stable labs in Sept Anemia 07/01/2022 Chronic maxillary sinusitis 07/01/2022 Edema 07/01/2022 Erectile dysfunction 07/01/2022 Gout of multiple sites due to renal impairment 0 07/01/2022 Overview (06/05/2023): 200mg allopurinol daily Other osteoporosis without current pathological fracture 07/01/2022 Overview (02/06/2024): DEXA 11/28 Encounters Date Type Department Care Team Description 06/14/2024 9:40 AM EST Office Visit [facility] [address] [place] [address] Rakel Lei FNP CKD (chronic kidney disease), stage IV (CMS/HCC) (Primary Dx); Anemia in stage 4 chronic kidney disease (CMS/HCC) (CMS/HCC); Sciatica associated with disorder of lumbar spine; Acquired hypothyroidism 06/14/2024 Travel 04/26/2024 10:00 AM EST Office Visit [facility] [address] [place] [address] Rakel Lei FNP Chronic left SI joint pain (Primary Dx); Spinal stenosis of lumbar region with neurogenic claudication 04/26/2024 Travel 04/23/[address] [facility] [address] [place] [address] Rakel Lei FNP from Last 3 Months Immunizations Name Administration Dates Next Due INFLUENZA INJECTABLE QUADRIV ALANT CCIIV4 MDCK Multi-dose vial 04/03/2017 Influenza Injectable Quadriv alant Preservative Free IIV4 MDCK 01/26/2022,01/17/2019,02/25/2018 Influenza, IIV3, injectable 02/06/2024,0 02/01/2020,02/06/2016,2014,02/11/2014 Influenza, Unspecified 01/16/2021 Moderna Covid-19 Vaccine 12+ 03/15/2024 Pfizer Covid-19 Vaccine 12+ 03/15/2024,1 ,08/08/2020,2020 TD (adult), 2 Lf tetanus tox oid, preservative free, adsorbed 11/01/2005 Td (adult), unspecified 06/06/2000 Tdap 10/04/2023,12/14/2010,06/06/2000 Zoster, Recombinant 04/26/2022,02/21/2022 Family History Medical History Relation Name Comments Hypertension Brother Hypertension Father Lung cancer Father Dementia Mother No family history of mac deg, cataracts, glaucoma Othe r Relation Name Status Comments Brother Father Mother Other Social History Tobacco Use Types Packs/Day Years [...] 06/14/2024 9:42 AM ES T Respiratory Rate 16 04/26/2024 10:00 AM EST Oxygen Saturation 100% 02/18/2022 8:30 AM EDT Inhaled Oxygen Concentration - - Weight 68.9 kg (152 lb) 06/14/2024 9:42 AM EST Height 172.7 cm (5' 8 ) 06/14/2024 9:42 AM EST Body Mass Index 23.11 06/14/2024 9:42 AM EST Plan of Treatment Upcoming Encounters Date Type Department Care Team (Late st Contact Info) Description 12/23/2024 8:20 AM EDT Office Visit [address] [facility] [address] [place] [address] Rakel Lei FNP [address] [place] [address] Health Maintenance Due Date Last Done Comments CT Colonography 1961 Colonoscopy 1961 Colorectal Cancer Screening 1961 FIT DNA/Cologuard 1961 FIT 1961 FOBT 1961 Sigmoidoscopy 1961 Pneumococcal Vaccine: 50+ Years (1 of 1 - PCV) 2011 Depression Screening 10/03/2024 10/04/2023, 10/04/19 24 SDOH Screening 10/03/2024 10/04/2023 COVID-19 Vaccine ( season) 2024 03/15/2024, 03/15/2024, 01/30/2023, Additional history exists Postponed from 05/10/2024 (Other System Reasons) Alcohol/Substance Use Screening 04/26/2025 04/26/2024 Tobacco Screening 04/26/2025 04/26/2024 Lipid Panel 10/03/2028 10/04/2023, 06/06/2023 DTaP/Tdap/Td Vaccines (6 - Td or Tdap) 10/03/2033 10/04/2023, 12/14/2010, 11/01/2005, Additional history exists RSV Patients and Patients Aged 60 years or older (1 - 1-dose 75+ series) 2036 Zoster Vaccines Completed 04/26/2022, 02/21/2022 Influenza Vaccine Completed 02/06/2024, , 01/16/2021, Additional history exists HIV Screening Completed 04/22/2024, 10/04/2023 Hepatitis C Screening Completed 04/22/2024, 024 HIB Vaccines Aged Out No longer eligi ble based on patient's age to complete this topic HPV Vaccines Aged Out No longer eligi ble based on patient's age to complete this topic Hepatitis A Vaccines Aged Out No long er eligible based on patient's age to complete this topic Hepatitis B Vaccines Aged Out No long er eligible based on patient's age to complete this topic IPV Vaccines Aged Out No longer eligi ble based on patient's age to complete this topic Meningococcal Vaccine Aged Out No suad reagan eligible based on patient's age to complete this topic RSV under 20 months Aged Out No longe r eligible based on patient's age to complete this topic Rotavirus Vaccines Aged Out No longer eligible based on patient's age to complete [...] ANTIBODY, QUALITATIVE Routine 04/22/2024 1:44 PM EST LIPID PANEL, STANDARD Routine 10/04/2023 10:09 AM EDT Mixed hyperlipidemia from Last 3 Months or Most Recently Relevant to Health Maintenance Results * Hepatitis B Surface Antigen (04/22/2024 1:46 PM EST) Blood Venous blood specimen / Unknown [facility] LAB BLOOD ORDERABLES Ca l Result * HM HIV 1/2 Antigen and Antibody (04/22/2024 1:46 PM EST) [facility] Final Result * HM Hepatitis C Antibody (04/22/2024 1:45 PM EST) Blood Result [facility] Final Result * Hepatitis B Antibody, Quant (04/22/2024 1:45 PM EST) [facility] LAB BLOOD ORDERABLES Ca l Result * Hepatitis B Surface Antibody, Qualitative (04/22/2024 1:44 PM EST) Blood Venous blood specimen / Unknown Result [facility] LAB BLOOD ORDERABLES Ca l Result * (ABNORMAL) Lipid Panel, Standard (10/04/2023 10:09 AM EDT) Cholesterol, Total 201(H) 100 - 199 mg/dL [facility] 1 Triglycerides 123 0 - 149 mg/dL [facility] 1 HDL Cholesterol 68 >39 mg/dL [facility] 1 VLDL Cholesterol Jcarlos 22 5 - 40 mg/dL [facility] 1 LDL Chol Calc (NIH) 111(H) 0 - 99 mg/dL [facility] 1 Blood Venous blood specimen / Unknown 10/04/2023 10:09 AM EDT 10/04/2023 Narrative [facility] 1 - 10/05/2023 6:05 AM EDT Performed at: ??01 - [facility] [address] ??[id number] Engineering Test Specialist: Char Lewis MD, Phone: ??[phone] Rakel SMITH LAB BLOOD ORDERABLES Ca stephan Result [facility] 1 from Last 3 Months or Most Recently Relevant to Health Maintenance Insurance [facility] MEDICARE ADVANTAGE HMO Care Teams Mold Tooler Relationship Specialty Start Date End Date Rakel Lei FNP [address] [place] [address], [place] [address] PCP - General Family Medicine 07/12/22
--- OUTSIDE RECORDS SUMMARY | 2024-06-20 09:06 | XMS_ITS | Encounter Summary ---
Author Organization [employer] Address [address] [facility] 7t [place] [address] Care Team Providers Care De Icer Finisher Name Role Phone Rakel Lei [facility] Primary Care Provider [phone] Encounter Details Date Type Department Care Team (Latest Contact Info) Description 06/14/2024 Travel Social History Tobacco Use Types Packs/Day Years [...] 12/23/2024 8:20 AM EDT Office Visit [facility] [address] [place] [address] Rakel Lei FNP [address] [place] [address] documented as of this encounter Visit Diagnoses Not on filedocumented in this encounter Care Teams De Icer Finisher Relationship Specialty Start Date End Date Rakel Lei FNP [address] [place] [address] PCP - General Family Medicine 07/12/22 documented as of this encounter
== END 2024-06-20 09:50 | disposition home or self-care (01) ==
PROVIDERS: PCP Internal Medicine; Visit Provider Physician Assistant
DX: Z98.1 Arthrodesis status (principal)
CPT/HCPCS: 99024

== ENCOUNTER 2024-06-20 08:50 | Outpatient (REF) | payer MEDICARE, SELFPAY ==
--- NOTE | ~2024-06-20 | XR_ITS ---
EXAMINATION: XR SACROILIAC JOINTS, LEFT CLINICAL INFORMATION: M53.3 - Sacrococcygeal disorders, not elsewhere classified COMPARISON: None available. TECHNIQUE: AP pelvis, and lateral oblique view of the left of the sacroiliac joint. FINDINGS: There is normal bone mineralization. There is no fracture, malalignment, or suspicious bone lesion. 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 No evidence of loosening. L4-5 posterior instrumented fusion with discectomy. Hardware appears intact and well seated. Presumed cortical graft/fusion device seen in the synovial aspect of the left SI joint. There is no bony ankylosis of the joint. Joint otherwise demonstrate mild arthritic changes and minimal subchondral sclerosis of predominantly the iliac aspect. The right SI joint solitary view demonstrates similar findings. No gross erosions or significant productive bony changes noted. XR/XR sacroiliac joint 1-2V IMPRESSION: 1. No acute bony abnormalities. 2. Presumed cortical fusion graft/device in the inferior synovial left SI joint. This spans the joint without definite bony fusion of the joint. 3. 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 CT is more sensitive if warranted. 4. Bilateral hip arthroplasties without complication. 5. Posterior instrumented fusion and discectomy L4-5, without definite complication on these limited views. Electronically signed by: Neptali Jones MD 06/20/2024 09:46 AM MONAE GOMEZ
--- OUTSIDE RECORDS SUMMARY | 2024-06-20 09:13 | XMS_ITS | Encounter Summary ---
Author Organization [facility] Address [address] [place] [address] Care Team Providers Care Comb Winder Name Role Phone Angel Hallman MD Primary Care Provider Unavail able Justin Acevedo MD Primary Care Provider [phone] Rosmery Khoury MD Primary Care Provider Unavaila Willie Villalobos MD Primary Care Provider [phone] [facility], [facility] Primary Care Provider UnavailCarl Trevino MD, PHD Unavailable Unava ilable Tracee Wells PA-C Unavailable [phone] Jacky ValdesC Unavailable [phone] Ann Marie Boucher MD Primary Care Provider Unavailab le Encounter Details Date Type Department Care Team Description 01/01/2013 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 [address] [place] [address] Stepan Zavala MD Social History Tobacco Use Types Packs/Day Years Used Date Smoking Tobacco: Former Cigarettes Q uit: 05/08/2000 Smokeless Tobacco: Never Alcohol Use Standard Drinks/Week Comments Yes 0 (1 standard drink = 0.6 oz pur e alcohol) 12/wk Sex Assigned at Date Recorded Not on file Job Start Date Occupation Industry Not on file Not on file Not on file documented as of this encounter Plan of Treatment Not on file documented as of this encounter Visit Diagnoses Not on filedocumented in this encounter Care Teams Comb Winder Relationship Specialty Start Date End Date Angel Hallman MD PCP - General 11/30/00 03/05/15 Justin Acevedo MD [address] [place] [address] [id number] PCP - General Internal Medicine 03/06/15 03/30/15 Rosmery Khoury MD [address] [place] [address] PCP - General Internal Medicine 03/31/15 07/20/20 Willie Chavez MD [address] [place] [address] PCP - General Internal Medicine 07/21/20 08/16/21 [facility], Pcp [address] [place], [place] [phone] PCP - General Internal Medicine 08/17/21 10/17/21 Ann Marie Boucher MD [address] [place] [address] PCP - General Internal Medicine 10/18/21 Carl Gandhi MD, PHD [address] [place], [place] [phone] Surgeon Neurosurgery 10/14/21 Tracee Wells PA-C [address] [place] [phone] Specialist Neurosurgery 10/14/21 Jacky Valdes PA-C [address] [address] Specialist Neurosurgery 10/14/21 documented as of this encounter
--- OUTSIDE RECORDS SUMMARY | 2024-06-20 09:13 | XMS_ITS | Encounter Summary ---
Author Organization [facility] Address [address] [place] [address] Care Team Providers Care Paperhanger Pipe Name Role Phone Rosmery Khoury MD Primary Care Provider UnavailWillie Garrido MD Primary Care Provider [phone] [facility], Pcp Primary Care Provider UnavailCarl Trevino MD, PHD Unavailable Unava ilable Tracee Wells PA-C Unavailable [phone] Jacky Valdes PA-C Unavailable [phone] Ann Marie Boucher MD Primary Care Provider Unavailab le Encounter Details Date Type Department Care Team Description 10/12/2015 [place] [facility] [address] [address] Rosmery Khoury MD Social History Tobacco Use Types Packs/Day Years Used Date Smoking Tobacco: Former Cigarettes Q uit: 05/08/2000 Smokeless Tobacco: Never Alcohol Use Standard Drinks/Week Comments Yes 0 (1 standard drink = 0.6 oz pur e alcohol) 15-18 wk Sex Assigned at Date Recorded Not on file Job Start Date Occupation Industry Not on file Not on file Not on file documented as of this encounter Miscellaneous Notes * Telephone Encounter - Rosmery Khoury MD - 11/03/2015 9:53 PM EDT luis Ansari about that * Telephone Encounter - Aura Wolf M.A. - 11/03/2015 4:35 PM EDT The latest labs on file are April 2015. He hasn't completed them from September 2015. * Telephone Encounter - Rosmery Khoury MD - 10/15/2015 5:42 PM EDT Did you get this message? * Telephone Encounter - Rosmery Khoury MD - 10/12/2015 12:20 PM EDT Can you print Javier's latest lab work and fax them to Dr Enriquez, nephrology documented in this encounter Plan of Treatment Not on file documented as of this encounter Visit Diagnoses Not on filedocumented in this encounter Care Teams Paperhanger Pipe Relationship Specialty Start Date End Date Rosmery Khoury MD PCP - General Internal Medicine 03/31/15 07/20/20 Willie Chavez MD [address] [place] [address] PCP - General Internal Medicine 07/21/20 08/16/21 [facility], Pcp [address] [place] [address] PCP - General Internal Medicine 08/17/21 10/17/21 Ann Marie Boucher MD [address] [place] [address] PCP - General Internal Medicine 10/18/21 Carl Gandhi MD, PHD [address] [place] [address] Surgeon Neurosurgery 10/14/21 Tracee Wells PA-C [address] [address] Specialist Neurosurgery 10/14/21 Jacky Valdes PA-C [address] [address] Specialist Neurosurgery 10/14/21 documented as of this encounter
--- OUTSIDE RECORDS SUMMARY | 2024-06-20 09:13 | XMS_ITS | Encounter Summary ---
Author Organization [facility] Address [address] [place] [address] Care Team Providers Care Supervisor Poultry Farm Name Role Phone Willie Chavez MD Primary Care Provider [facility] Primary Care Provider Unavailabl Carl Gruber MD, PHD Unavailable Unava ilable Tracee Wells PA-C Unavailable [phone] Jacky Valdes PA-C Unavailable [phone] Ann Marie Boucher MD Primary Care Provider Unavailab le Reason for Visit * Reason Comments E-prescribe Rx Request Encounter Details Date Type Department Care Team Description 11/13/2020 Refill Adult Medicine [address] [id number] Willie Chavez MD [address] [place] [address] [phone] E-prescribe Rx Request Social History Tobacco Use Types Packs/Day Years Used Date Smoking Tobacco: Former Cigarettes Q uit: 05/08/2000 Smokeless Tobacco: Never Alcohol Use Standard Drinks/Week Comments Yes 0 (1 standard drink = 0.6 oz pur e alcohol) 15-18 wk; beer Sex Assigned at Date Recorded Not on file Job Start Date Occupation Industry Not on file Not on file Not on file documented as of this encounter Miscellaneous Notes * Telephone Encounter - Hoa Carnes M.A. - 11/13/2020 2:53 PM EDT Last office visit 09/11/20 Next office visit 12/21/20 Lab Results Component Value Date CHOL 192 05/07/2020 LDL 90 05/07/2020 HDL 37 05/07/2020 TRIG 328 05/07/2020 SGOT 24 02/03/2020 SGPT 30 02/03/2020 * Telephone Encounter - Payam Estefanía - 11/13/2020 2:48 PM EDT Patient would like script to be: E-PRESCRIBED/FAXED TO PHARMACY WHEN WAS THE PATIENT'S LAST APPOINTMENT IN ADULT MEDICINE? 09/11/20 WHEN WAS THE LAST TIME THE PATIENT SAW THEIR PCP? Does patient have an upcoming appointment? Yes 12/21/20 (THE MEDICATION REQUESTED IS ON THE MED LIST ABOVE) All of the medications requested were on the CURRENT MEDS list Did you check the Pharmacy information above?: YES Patient wants: 90 -day supply Is this a mail order prescription request ? YES If the refill is from a FAXED refill request what is the RX # listed on the fax? N/A Patients current insurance carrier is: Payor: [facility]/MEDICARE PPO / Plan: [facility] MDCR-ADV PPO $10/$45 [place] / Product Type: MEDICARE [id number] documented in this encounter Plan of Treatment Not on file documented as of this encounter Visit Diagnoses Not on filedocumented in this encounter Care Teams Supervisor Poultry Farm Relationship Specialty Start Date End Date Willie Chavez MD [address] [place] [address] PCP - General Internal Medicine 07/21/20 08/16/[address] [address] PCP - General Internal Medicine 08/17/21 10/17/21 Ann Marie Boucher MD [address] [address] PCP - General Internal Medicine 10/18/21 Carl Gandhi MD, PHD [address] [place] [address] Surgeon Neurosurgery 10/14/21 Tracee Wells PA-C [address] [phone] Specialist Neurosurgery 10/14/21 Jacky Valdes PA-C [address] [address] Specialist Neurosurgery 10/14/21 documented as of this encounter
--- OUTSIDE RECORDS SUMMARY | 2024-06-20 09:13 | XMS_ITS | Encounter Summary ---
Author Organization [facility] Address [address] [place] [address] Care Team Providers Care Welding Foreman Name Role Phone Angel Hallman MD Primary Care Provider Unavail able Justin Acevedo MD Primary Care Provider [phone] Rosmery Khoury MD Primary Care Provider Unavaila Willie Villalobos MD Primary Care Provider [phone] [facility], Pcp Primary Care Provider UnavailCarl Trevino MD, PHD Unavailable Unava ilable Tracee Wells PA-C Unavailable [phone] Jacky Valdes PA-C Unavailable [phone] Ann Marie Boucher MD Primary Care Provider Unavailab le Encounter Details Date Type Department Care Team Description 04/29/2013 Orders Only Medicine/Pediatrics [address] [address] Angel Hallman MD Unspecified hypothyroidism; Chronic kidney disease, stage III (moderate); Essential hypertension, benign; Hyperparathyroidism, unspecified Social History Tobacco Use Types Packs/Day Years [...] on file documented as of this encounter Results * THYROID PROFILE W/TSH (05/17/2013 8:34 AM EST) TSH CASCADE 3.57 0.40 - 4.00 uIU/ml 05/17/2013 12:[address] [facility] 05/17/2013 8:34 AM EST 05/17/2013 8:34 AM EST Angel Hallman MD LAB Performing Organization Address City/State/[facility] Co de Phone Number [facility] [address] [facility] * (ABNORMAL) COMPREHENSIVE METABOLIC PANEL (05/17/2013 8:34 AM EST) GLUCOSE 81 70 - 100 mg/dL 05/17/2013 1:06 PM [facility] Comment: Reference range applicable to fasting specimens only Based on recommendations from the ADA and AACE, the fasting glucose reference range has been changed to 70-100 mg/dL. ??This change is effective September 21, 2009 BUN 28(H) 5 - 25 mg/dL 05/17/2013 1:[address] [facility] CREAT 1.6(H) 0.7 - 1.5 mg/dL 05/17/2013 1:[address] [facility] BUN/CREAT RATIO 17.5 6.0 - 20.0 05/17/2013 1:[address] [facility] GFR 49(L) >60 05/17/2013 1:03 PM [facility] Comment: If patient is -Jamaican, multiply result by 1.21 Chronic Kidney Disease: < 60 ml/min/1.73 square meters Kidney Failure: < 15 ml/min/1.73 square meters Sodium 137 133 - 145 mEq/L 05/17/2013 12:[address] [facility] Potassium 4.5 3.5 - 5.2 mEq/L 05/17/2013 12:[address] [facility] Chloride 102 96 - 108 mEq/L 05/17/2013 12:[address] [facility] CO2 21.8 21.0 - 32.0 mEq/L 05/17/2013 1:[address] [facility] CALCIUM 9.8 8.5 - 10.5 mg/dL 05/17/2013 1:01 PM EST [facility] TOTAL PROTEIN 7.3 6.0 - 8.3 gm/dL 05/17/2013 1:06 PM EST [facility] Albumin 4.3 3.2 - 5.6 gm/dL 05/17/2013 1:01 PM EST [facility] GLOBULIN 3.0 1.9 - 4.4 gm/dL 05/17/2013 1:06 PM EST [facility] A/G RATIO 1.4 1.1 - 2.3 05/17/2013 1:06 PM EST [facility] BILI,TOTAL 0.4 0.0 - 1.2 mg/dL 05/17/2013 1:05 PM EST [facility] AST (SGOT) 32 10 - 42 U/L 05/17/2013 1:06 PM EST [facility] ALT( SGPT) 30 10 - 60 U/L 05/17/2013 1:[address] [facility] ALK PHOS 96 42 - 121 U/L 05/17/2013 1:06 PM EST [facility] 05/17/2013 8:34 AM EST 05/17/2013 8:34 AM EST Angel Hallman MD LAB Performing Organization Address [facility] Co de Phone Number [address] * PTH INTACT (05/17/2013 8:34 AM EST) INTACT PTH 58 14 - 72 pg/mL 05/17/2013 1:01 PM EST [facility] 05/17/2013 8:34 AM EST 05/17/2013 8:34 AM EST Angel Hallman MD LAB [facility] documented in this encounter Visit Diagnoses Diagnosis Unspecified hypothyroidism Chronic kidney disease, stage III (moderate) (HCC) Chronic kidney disease, Stage III (moderate) Essential hypertension, benign Hyperparathyroidism, unspecified (HCC) Hyperparathyroidism, unspecified documented in this encounter Care Teams Welding Foreman Relationship Specialty Start Date End Date Angel Hallman MD PCP - General 11/30/00 03/05/15 Justin Acevedo MD [address] [place] [address] PCP - General Internal Medicine 03/06/15 03/30/15 Rosmery Khoury MD [address] [place] [address] PCP - General Internal Medicine 03/31/15 07/20/20 Willie Chavez MD [address] [place] [address] PCP - General Internal Medicine 07/21/20 08/16/21 [facility], Pcp [address] [place] [address] PCP - General Internal Medicine 08/17/21 10/17/21 Ann Marie Boucher MD [address] [place] [address] PCP - General Internal Medicine 10/18/21 Carl Gandhi MD, PHD [address] [place] [address] Surgeon Neurosurgery 10/14/21 Tracee Wells PA-C [address] [place] [address] Specialist Neurosurgery 10/14/21 Jacky Valdes PA-C [address] [place] [address] Specialist Neurosurgery 10/14/21 documented as of this encounter
--- OUTSIDE RECORDS SUMMARY | 2024-06-20 09:13 | XMS_ITS | Encounter Summary ---
Author Organization [facility] Address [address] [place] [address] Care Team Providers Care Concrete Finisher Apprentice Name Role Phone Angel Hallman MD Primary Care Provider Unavail able Justin Acevedo MD Primary Care Provider [phone] Rosmery Khoury MD Primary Care Provider Unavaila Willie Villalobos MD Primary Care Provider [phone] [facility], [facility] Primary Care Provider UnavailCarl Trevino MD, PHD Unavailable Unava ilable Tracee Wells PA-C Unavailable [phone] Jacky ValdesC Unavailable [phone] Ann Marie Boucher MD Primary Care Provider Unavailab le Encounter Details Date Type Department Care Team Description 12/26/2012 Assurance Manager Report Medical Records [address] [place] [address] Otilia Vazquez MD [address] [place] [address] [address] [place] [address] Social History Tobacco Use Types Packs/Day Years [...] on filedocumented in this encounter Care Teams Concrete Finisher Apprentice Relationship Specialty Start Date End Date Angel Hallman MD PCP - General 11/30/00 03/05/15 Justin Acevedo MD [address] [place] [address] PCP - General Internal Medicine 03/06/15 03/30/15 Rosmery Khoury MD [address] [place] [address] PCP - General Internal Medicine 03/31/15 07/20/20 Willie Chavez MD [address] [place] [address] PCP - General Internal Medicine 07/21/20 08/16/21 [facility], Pcp [address] [place] [address] PCP - General Internal Medicine 08/17/21 10/17/21 Ann Marie Boucher MD [address] [place] [address] PCP - General Internal Medicine 10/18/21 Carl Gandhi MD, PHD [address] [place] [address] Surgeon Neurosurgery 10/14/21 Tracee Wells PA-C [address] [address] Specialist Neurosurgery 10/14/21 Jacky Valdes PA-C [address] [address] Specialist Neurosurgery 10/14/21 documented as of this encounter
--- OUTSIDE RECORDS SUMMARY | 2024-06-20 09:13 | XMS_ITS | Encounter Summary ---
Author Organization [facility] Address [address] [place] [address] Care Team Providers Care Forensic Economist Name Role Phone Angel Hallman MD Primary Care Provider Unavail able Justin Acevedo MD Primary Care Provider [phone] Rosmery Khoury MD Primary Care Provider Unavaila Willie Villalobos MD Primary Care Provider [phone] [facility], [facility] Primary Care Provider UnavailCarl Trevino MD, PHD Unavailable Unava ilable Tracee Wells PA-C Unavailable [phone] Jacky Valdes PA-C Unavailable [phone] Ann Marie Boucher MD Primary Care Provider Unavailab le Encounter Details Date Type Department Care Team Description 04/17/2013 Hospital Medical Records [address] [place] [address] Jacky Foss MD Social History Tobacco Use Types Packs/Day [...] on filedocumented in this encounter Care Teams Forensic Economist Relationship Specialty Start Date End Date Angel Hallman MD PCP - General 11/30/00 03/05/15 Justin Acevedo MD [address] [place] [address] PCP - General Internal Medicine 03/06/15 03/30/15 Rosmery Khoury MD [address] [place] [address] PCP - General Internal Medicine 03/31/15 07/20/20 Willie Chavez MD [address] [place] [address] PCP - General Internal Medicine 07/21/20 08/16/21 [facility], Pcp [address] [place] [address] PCP - General Internal Medicine 08/17/21 10/17/21 Ann Marie Boucher MD [address] [place] [address] PCP - General Internal Medicine 10/18/21 Carl Gandhi MD, PHD [address] [place] [address] Surgeon Neurosurgery 10/14/21 Tracee Wells PA-C [address] [place] [address] Specialist Neurosurgery 10/14/21 Jacky Valdes PA-C [address] [place] [address] Specialist Neurosurgery 10/14/21 documented as of this encounter
--- OUTSIDE RECORDS SUMMARY | 2024-06-20 09:13 | XMS_ITS | Encounter Summary ---
Author Organization [facility] Address [address] [place] [address] Care Team Providers Care Service Engine Repairer Name Role Phone Rosmery Khoury MD Primary Care Provider Unavaila Willie Villalobos MD Primary Care Provider [phone] [facility], Pcp Primary Care Provider UnavailCarl Trevino MD, PHD Unavailable Unava ilable Tracee Wells PA-C Unavailable [phone] Jacky Valdes PA-C Unavailable [phone] Ann Marie Boucher MD Primary Care Provider Unavailab sosa Encounter Details Date Type Department Care Team Description 06/20/2016 Ecological Modeler Report Medical Records [address] [place] [address] Gerry Enriquez MD Social History Tobacco Use Types Packs/Day [...] on filedocumented in this encounter Care Teams Service Engine Repairer Relationship Specialty Start Date End Date Rosmery Khoury MD PCP - General Internal Medicine 03/31/15 07/20/20 Willie Chavez MD [address] [place] [address] [phone] PCP - General Internal Medicine 07/21/20 08/16/21 [facility], Pcp [address] [place] [address] [place] [address] PCP - General Internal Medicine 08/17/21 10/17/21 Ann Marie Boucher MD [address] [address] PCP - General Internal Medicine 10/18/21 Carl Gandhi MD, PHD [address] [place] [address] Surgeon Neurosurgery 10/14/21 Tracee Wells PA-C [address] [address] Specialist Neurosurgery 10/14/21 Jacky Valdes PA-C [address] [address] Specialist Neurosurgery 10/14/21 documented as of this encounter
--- OUTSIDE RECORDS SUMMARY | 2024-06-20 09:13 | XMS_ITS | Encounter Summary ---
Author Organization [facility] Address [address] [place] [address] Care Team Providers Care Molder Shoulder Pad Name Role Phone Rosmery Khoury MD Primary Care Provider Unavaila Willie Villalobos MD Primary Care Provider [facility], Pcp Primary Care Provider UnavailCarl Trevino MD, PHD Unavailable Unava ilable Tracee Wells PA-C Unavailable [phone] Jacky Valdes PA-C Unavailable [phone] Ann Marie Boucher MD Primary Care Provider Unavailab sosa Encounter Details Date Type Department Care Team Description 12/24/2018 Automatic Gluing Machine Operator Report Medical Records [address] [place] [address] Gerry Enriquez MD Social History Tobacco Use [...] on filedocumented in this encounter Care Teams Molder Shoulder Pad Relationship Specialty Start Date End Date Rosmery Khoury MD PCP - General Internal Medicine 03/31/15 07/20/20 Willie Chavez MD [address] [place] [address] [phone] PCP - General Internal Medicine 07/21/20 08/16/21 [facility], Pcp [address] [place] [address] [place] [address] PCP - General Internal Medicine 08/17/21 10/17/21 Ann Marie Boucher MD [address] [address] PCP - General Internal Medicine 10/18/21 Carl Gandhi MD, PHD [address] [place] [address] Surgeon Neurosurgery 10/14/21 Tracee Wells PA-C [address] [address] Specialist Neurosurgery 10/14/21 Jacky Valdes PA-C [address] [address] Specialist Neurosurgery 10/14/21 documented as of this encounter
--- OUTSIDE RECORDS SUMMARY | 2024-06-20 09:13 | XMS_ITS | Encounter Summary ---
Author Organization [facility] Address [address] [place] [address] Care Team Providers Care Coal Tower Operator Name Role Phone Angel Hallman MD Primary Care Provider Unavail able Justin Acevedo MD Primary Care Provider [phone] Rosmery Khoury MD Primary Care Provider Unavaila Willie Villalobos MD Primary Care Provider [phone] [facility], [facility] Primary Care Provider UnavailCarl Trevino MD, PHD Unavailable Unava ilable Tracee Wells PASusanaC Unavailable [phone] Jacky ValdesC Unavailable [phone] Ann Marie Boucher MD Primary Care Provider Unavailab le Encounter Details Date Type Department Care Team Description 12/12/2012 Hospital Medical Records [address] [place] [address] Otilia Vazquez MD [address] [place] [address] [address] [place] [address] Social History Tobacco Use Types Packs/Day Years [...] on filedocumented in this encounter Care Teams Coal Tower Operator Relationship Specialty Start Date End Date Angel Hallman MD PCP - General 11/30/00 03/05/15 Justin Acevedo MD [address] [place] [address] PCP - General Internal Medicine 03/06/15 03/30/15 Rosmery Khoury MD [address] [place] [address] PCP - General Internal Medicine 03/31/15 07/20/20 Willie Chavez MD [address] [place] [address] PCP - General Internal Medicine 07/21/20 08/16/21 [facility], Pcp [address] [place] [address] PCP - General Internal Medicine 08/17/21 10/17/21 Ann Marie Boucher MD [address] [place] [address]74 PCP - General Internal Medicine 10/18/21 Carl Gandhi MD, PHD [address] [place] [address] Surgeon Neurosurgery 10/14/21 Tracee Wells PA-C [address] [address] Specialist Neurosurgery 10/14/21 Jacky Valdes PA-C [address] [address] Specialist Neurosurgery 10/14/21 documented as of this encounter
--- OUTSIDE RECORDS SUMMARY | 2024-06-20 09:13 | XMS_ITS | Encounter Summary ---
Author Organization [facility] Address [address] [place] [address] Care Team Providers Care Tape Making Machine Operator Name Role Phone Rosmery Khoury MD Primary Care Provider Unavaila Willie Villalobos MD Primary Care Provider [phone] [facility], Pcp Primary Care Provider UnavailCarl Trevino MD, PHD Unavailable Unava ilable Tracee Wells PA-C Unavailable [phone] Jacky Valdes PA-C Unavailable [phone] Ann Marie Boucher MD Primary Care Provider Unavailab sosa Encounter Details Date Type Department Care Team Description 09/04/2017 Physician Report Medical Records [address] [place] [address] Gerry Enriquez MD Social History Tobacco Use [...] on filedocumented in this encounter Care Teams Tape Making Machine Operator Relationship Specialty Start Date End Date Rosmery Khoury MD PCP - General Internal Medicine 03/31/15 07/20/20 Willie Chavez MD [address] [place] [address] [phone] PCP - General Internal Medicine 07/21/20 08/16/21 [facility], Pcp [address] [place] [address] [place] [address] PCP - General Internal Medicine 08/17/21 10/17/21 Ann Marie Boucher MD [address] [address] PCP - General Internal Medicine 10/18/21 Carl Gandhi MD, PHD [address] [place] [address] Surgeon Neurosurgery 10/14/21 Tracee Wells PA-C [address] [address] Specialist Neurosurgery 10/14/21 Jacky Valdes PA-C [address] [address] Specialist Neurosurgery 10/14/21 documented as of this encounter
--- OUTSIDE RECORDS SUMMARY | 2024-06-20 09:13 | XMS_ITS | Encounter Summary ---
Author Organization [facility] Address [address] [place] [address] Care Team Providers Care Design Printing Machine Setter Name Role Phone Rosmery Khoury MD Primary Care Provider Unavaila Willie Villalobos MD Primary Care Provider [phone] [facility], Pcp Primary Care Provider UnavailCarl Trevino MD, PHD Unavailable Unava ilable Tracee Wells PA-C Unavailable [phone] Jacky Valdes PA-C Unavailable [phone] Ann Marie Boucher MD Primary Care Provider Unavailab sosa Encounter Details Date Type Department Care Team Description 11/16/2015 Tapper Balance Wheel Screw Hole Report Medical Records [address] [place] [address] Gerry Enriquez MD Social History Tobacco Use [...] on filedocumented in this encounter Care Teams Design Printing Machine Setter Relationship Specialty Start Date End Date Rosmery Khoury MD PCP - General Internal Medicine 03/31/15 07/20/20 Willie Chavez MD [address] [place] [address] [phone] PCP - General Internal Medicine 07/21/20 08/16/21 [facility], Pcp [address] [place] [address] PCP - General Internal Medicine 08/17/21 10/17/21 Ann Marie Boucher MD [address] [address] PCP - General Internal Medicine 10/18/21 Carl Gandhi MD, PHD [address] [place] [address] Surgeon Neurosurgery 10/14/21 Tracee Wells PA-C [address] [address] Specialist Neurosurgery 10/14/21 Jacky Valdes PA-C [address] [address] Specialist Neurosurgery 10/14/21 documented as of this encounter
--- OUTSIDE RECORDS SUMMARY | 2024-06-20 09:13 | XMS_ITS | Encounter Summary ---
Author Organization [facility] Address [address] [place] [address] Care Team Providers Care Truck Unloader Name Role Phone Rosmery Khoury MD Primary Care Provider UnavailWillie Garrido MD Primary Care Provider [phone] [facility], Pcp Primary Care Provider UnavailCarl Trevino MD, PHD Unavailable Unava ilable Tracee Wells PA-C Unavailable [phone] Jacky Valdes PA-C Unavailable [phone] Ann Marie Boucher MD Primary Care Provider Unavailab le Encounter Details Date Type Department Care Team Description 05/21/2020 Telephone Adult [address] [id number] Rosalind Dawson PA-C Social History Tobacco Use Types Packs/Day Years Used Date Smoking Tobacco: Former Cigarettes Q uit: 05/08/2000 Smokeless Tobacco: Never Alcohol Use Standard Drinks/Week Comments Yes 0 (1 standard drink = 0.6 oz pur e alcohol) 15-18 wk; beer Sex Assigned at Date Recorded Not on file Job Start Date Occupation Industry Not on file Not on file Not on file COVID-19 Exposure Response Date Recorded In the last month, have you been in contact with someone who was confirmed or suspected to have Coronavirus / COVID-19? No / Unsure 05/07/2020 8:50 AM EST documented as of this encounter Miscellaneous Notes * Telephone Encounter - Tracee Tolentino M.A. - 05/26/2020 1:07 PM EST [phone] (home) Lvm for pt to return call. Third attempt to call pt. If pt returns call please inform of below and schedule appt with careteam. * Telephone Encounter - Jennifer Castillo M.A. - 05/21/2020 1:21 PM EST [phone] (home) Lvm for pt to return call. ?? Per results note his lab work showed mild improvement since previous lab work. ??He needs to continue working on this. ??Please schedule him a follow-up with his care team to discuss his cholesterol more in-depth along with doing a full on medication review. ??Has not been seen since January * Telephone Encounter - Sujata Hansen - 05/21/2020 11:46 AM EST Please see msg from 05/13/20 Patient can be reached @ [phone] documented in this encounter Plan of Treatment Not on file documented as of this encounter Visit Diagnoses Not on filedocumented in this encounter Care Teams Truck Unloader Relationship Specialty Start Date End Date Rosmery Khoury MD PCP - General Internal Medicine 03/31/15 07/20/20 Willie Chavez MD [address] [place] [address] PCP - General Internal Medicine 07/21/20 08/16/21 [facility], Pcp [address] [place] [address] PCP - General Internal Medicine 08/17/21 10/17/21 Ann Marie Boucehr MD [address] [address] PCP - General Internal Medicine 10/18/21 Carl Gandhi MD, PHD [address] [place] [address] Surgeon Neurosurgery 10/14/21 Tracee Wells PA-C 175 [facility] [address] [place] [address] Specialist Neurosurgery 10/14/21 Jacky Valdes PA-C [address] [place] [address] Specialist Neurosurgery 10/14/21 documented as of this encounter
--- OUTSIDE RECORDS SUMMARY | 2024-06-20 09:13 | XMS_ITS | Encounter Summary ---
Author Organization [facility] Address [address] [place] [address] Care Team Providers Care Sole Tier Name Role Phone Rosmery Khoury MD Primary Care Provider Unavaila Willie Villalobos MD Primary Care Provider [phone] [facility], Pcp Primary Care Provider UnavailCarl Trevino MD, PHD Unavailable Unava ilable Tracee Wells PA-C Unavailable [phone] Jacky Valdes PA-C Unavailable [phone] Ann Marie Boucher MD Primary Care Provider Unavailab sosa Encounter Details Date Type Department Care Team Description 05/15/2017 Teacher Advisor Report Medical Records [address] [place] [address] Gerry Enriquez MD Social History Tobacco Use [...] on filedocumented in this encounter Care Teams Sole Tier Relationship Specialty Start Date End Date Rosmery Khoury MD PCP - General Internal Medicine 03/31/15 07/20/20 Willie Chavez MD [address] [place] [address] [phone] PCP - General Internal Medicine 07/21/20 08/16/21 [facility], Pcp [address] [place] [address] [place] [address] PCP - General Internal Medicine 08/17/21 10/17/21 Ann Marie Boucher MD [address] [address] PCP - General Internal Medicine 10/18/21 Carl Gandhi MD, PHD [address] [place] [address] Surgeon Neurosurgery 10/14/21 Tracee Wells PA-C [address] [address] Specialist Neurosurgery 10/14/21 Jacky Valdes PA-C [address] [address] Specialist Neurosurgery 10/14/21 documented as of this encounter
--- OUTSIDE RECORDS SUMMARY | 2024-06-20 09:13 | XMS_ITS | Encounter Summary ---
Author Organization [facility] Address [address] [place] [address] Care Team Providers Care Manager Talent Name Role Phone Rosmery Khoury MD Primary Care Provider UnavailWillie Garrido MD Primary Care Provider [phone] [facility], [facility]cp Primary Care Provider UnavailCarl Trevino MD, PHD Unavailable Unava ilable Tracee Wells PA-C Unavailable [phone] Jacky Valdes PA-C Unavailable [phone] Ann Marie Boucher MD Primary Care Provider Unavailab sosa Encounter Details Date Type Department Care Team Description 01/22/2020 Prosthetic Technician Report Medical Records [address] [place] [address] Madi Riggins I Social History Tobacco Use Types Packs/Day Years [...] on filedocumented in this encounter Care Teams Manager Talent Relationship Specialty Start Date End Date Rosmery Khoury MD PCP - General Internal Medicine 03/31/15 07/20/20 Willie Chavez MD [address] [place] [address] [phone] PCP - General Internal Medicine 07/21/20 08/16/21 [facility] Pcp [address] [place] [address] PCP - General Internal Medicine 08/17/21 10/17/21 Ann Marie Boucher MD [address] [address] PCP - General Internal Medicine 10/18/21 Carl Gandhi MD, PHD [address] [place] [address] Surgeon Neurosurgery 10/14/21 Tracee Wells PA-C [address] [address] Specialist Neurosurgery 10/14/21 Jacky Valdes PA-C [address] [address] Specialist Neurosurgery 10/14/21 documented as of this encounter
--- OUTSIDE RECORDS SUMMARY | 2024-06-20 09:13 | XMS_ITS | Encounter Summary ---
Author Organization [facility] Address [address] [place] [address] Care Team Providers Care Press Supervisor Name Role Phone Rosmery Khoury MD Primary Care Provider UnavailWillie Garrido MD Primary Care Provider [phone] [facility], Pcp Primary Care Provider UnavailCarl Trevino MD, PHD Unavailable Unava ilable Tracee Wells PA-C Unavailable [phone] Jacky Valdes PA-C Unavailable [phone] Ann Marie Boucher MD Primary Care Provider Unavailab sosa Encounter Details Date Type Department Care Team Description 02/14/2019 [facility] Medical Records [address] [place] [address] Abstract, Provider Social History Tobacco Use Types Packs/Day Years [...] on filedocumented in this encounter Care Teams Press Supervisor Relationship Specialty Start Date End Date Rosmery Khoury MD PCP - General Internal Medicine 03/31/15 07/20/20 Willie Chavez MD [address] [place] [address] PCP - General Internal Medicine 07/21/20 08/16/21 [facility], Pcp [address] [place] [address] PCP - General Internal Medicine 08/17/21 10/17/21 Ann Marie Boucher MD [address] [address] PCP - General Internal Medicine 10/18/21 Carl Gandhi MD, PHD [address] [place] [address] Surgeon Neurosurgery 10/14/21 Tracee Wells PA-C [address] [address] Specialist Neurosurgery 10/14/21 Jacky Valdes PA-C [address] [address] Specialist Neurosurgery 10/14/21 documented as of this encounter
--- OUTSIDE RECORDS SUMMARY | 2024-06-20 09:14 | XMS_ITS | Encounter Summary ---
Author Organization [facility] Address [address] [place] [address] Care Team Providers Care Credit Risk Manager Name Role Phone Angel Hallman MD Primary Care Provider Unavail able Justin Acevedo MD Primary Care Provider [phone] Rosmery Khoury MD Primary Care Provider Unavaila Willie Villalobos MD Primary Care Provider [phone] [facility], [facility] Primary Care Provider UnavailCarl Trevino MD, PHD Unavailable Unava ilable Tracee Wells PASusanaC Unavailable Jacky ValdesC Unavailable [phone] Ann Marie Boucher MD Primary Care Provider Unavailab le Encounter Details Date Type Department Care Team Description 10/12/2011 Hospital Medical Records [address] [place] [address] Carl Majano MD Social History Tobacco Use Types Packs/Day [...] on filedocumented in this encounter Care Teams Credit Risk Manager Relationship Specialty Start Date End Date Angel Hallman MD PCP - General 11/30/00 03/05/15 Justin Acevedo MD [address] [place] [address] [phone] PCP - General Internal Medicine 03/06/15 03/30/15 Rosmery Khoury MD [address] [place] [address] PCP - General Internal Medicine 03/31/15 07/20/20 Willie Chavez MD [address] [place] [address] PCP - General Internal Medicine 07/21/20 08/16/21 [facility], Pcp [address] [place] [address] PCP - General Internal Medicine 08/17/21 10/17/21 Ann Marie Boucher MD [address] [place] [address] PCP - General Internal Medicine 10/18/21 Carl Gandhi MD, PHD [address] [place] [address] Surgeon Neurosurgery 10/14/21 Tracee Wells PA-C [address] [place] [address] Specialist Neurosurgery 10/14/21 Jacky Valdes PA-C [address] [place] [address] Specialist Neurosurgery 10/14/21 documented as of this encounter
--- OUTSIDE RECORDS SUMMARY | 2024-06-20 09:14 | XMS_ITS | Encounter Summary ---
Author Organization [facility] Address [address] [place] [address] Care Team Providers Care Air Hammer Stripper Name Role Phone Angel Hallman MD Primary Care Provider Unavail able Justin Acevedo MD Primary Care Provider Rosmery Khoury MD Primary Care Provider Unavaila Willie Villalobos MD Primary Care Provider [phone] [facility], [facility] Primary Care Provider UnavailCarl Trevino MD, PHD Unavailable Unava ilable Tracee Wells PA-C Unavailable [phone] Jacky Valdes PA-C Unavailable [phone] Ann Marie Boucher MD Primary Care Provider Unavailab le Encounter Details Date Type Department Care Team Description 03/21/2011 Sql Bi Developer Report Medical Records [address] [place] [address] Xavi Young PA-C Social History Tobacco Use Types Packs/Day Years Used Date Smoking Tobacco: Former Cigarettes Q uit: 05/08/2000 Alcohol Use Standard Drinks/Week Comments Not Asked 0 (1 standard drink = 0.6 oz pur e alcohol) 12/wk Sex Assigned at Date Recorded Not on file Job Start Date Occupation Industry Not on file Not on file Not on file documented as of this encounter Plan of Treatment Not on file documented as of this encounter Visit Diagnoses Not on filedocumented in this encounter Care Teams Air Hammer Stripper Relationship Specialty Start Date End Date Angel Hallman MD PCP - General 11/30/00 03/05/15 Justin Acevedo MD [address] [place] [address] [phone] PCP - General Internal Medicine 03/06/15 03/30/15 Rosmery Khoury MD [address] [place] [address] PCP - General Internal Medicine 03/31/15 07/20/20 Willie Chavez MD [address] [place] [address] PCP - General Internal Medicine 07/21/20 08/16/21 [facility], Pcp [address] [place], [place] [phone] PCP - General Internal Medicine 08/17/21 10/17/21 Ann Marie Boucher MD [address] [place] [address] PCP - General Internal Medicine 10/18/21 Carl Gandhi MD, PHD [address] [place] [address] Surgeon Neurosurgery 10/14/21 Tracee Wells PA-C [address] [place] [address] Specialist Neurosurgery 10/14/21 Jacky Valdes PA-C [address] [place] [address] Specialist Neurosurgery 10/14/21 documented as of this encounter
--- OUTSIDE RECORDS SUMMARY | 2024-06-20 09:14 | XMS_ITS | Encounter Summary ---
Author Organization [facility] Address [address] [place] [address] Care Team Providers Care Mechanical Service Technician Name Role Phone Rosmery Khoury MD Primary Care Provider UnavailWillie Garrido MD Primary Care Provider [phone] [facility], Pcp Primary Care Provider UnavailCarl Trevino MD, PHD Unavailable Unava ilable Tracee Wells PA-C Unavailable [phone] Jacky Valdes PA-C Unavailable [phone] Ann Marie Boucher MD Primary Care Provider Unavailab le Encounter Details Date Type Department Care Team Description 06/07/2018 Telephone Medicine/Pediatrics - [address] [address] Manas Simental MD Social History Tobacco Use Types Packs/Day [...] encounter Miscellaneous Notes * Telephone Encounter - Manas Simental MD - 08/06/2018 8:40 AM EDT noted * Telephone Encounter - Juan Luis Saul M.A. - 08/02/2018 11:37 AM EDT Last RX for Tramadol 50mg filled on 07/19/18 [id number] Siq6hrs prn Expected remaining tablets: 56 Actual Pill Count number: 62 Provider notified of result: YES Appearance of medication tablet verified in Ep[facility]/PDR or patients pharmacy: Pill count performed by Juan Luis Saul M.A.. Witnessed by: Sheree Ann Electronically signed by: Juan Luis Saul M.A. 08/02/2018 11:32 AM * Telephone Encounter - Manas Simental MD - 06/08/2018 1:18 PM EST noted * Telephone Encounter - Kinsey Reeves LYonatanP.NYonatan - 06/08/2018 9:55 AM EST Pt notified as written below Pt has a fu with dr Enriquez next week He states he will have dr Enriquez review FYI * Telephone Encounter - Manas Simental MD - 06/07/2018 5:41 PM EST Please contact patient to inform him kidney function is worse compared to his baseline (creatinine at 2.5, normal is 1.9), please advise him to repeat labs for kidney function to see if creatinine stabilizing or worsening as he will need to be seen earlier by his rn icu if so. thanks * Telephone Encounter - Manas Simental MD - 06/07/2018 5:40 PM EST ----- Message from Sheree Ann M.A. sent at 06/01/2018 1:28 PM EST ----- Ordering provider out of office, Please review. documented in this encounter Plan of Treatment Not on file documented as of this encounter Results * (ABNORMAL) BASIC METABOLIC PANEL (06/11/2018 10:41 AM EST) GLUCOSE 104(H) 70 - 100 mg/dL 06/11/2018 1:35 PM EST [facility] Comment:Reference range appl icable to fasting specimens only Blood Urea Nitrogen 45(H) 5 - 25 mg/dL 06/11/2018 1:35 PM EST [facility] CREAT 2.18(H) 0.7 - 1.3 mg/dL 06/11/2018 1:35 PM EST [facility] GLOMERULAR FILTRATION RATE 31 06/11/2018 1:35 PM EST [facility] Comment: If patient is -L[place], multiply result by 1.21 Chronic Kidney Disease: < 60 ml/min/1.73 square meters Kidney Failure: < 15 ml/min/1.73 square meters NA 138 133 - 145 mmol/L 06/11/2018 1:35 PM EST [facility] K 4.6 3.5 - 5.5 mmol/L 06/11/2018 1:35 PM EST [facility] CL 104 96 - 110 mmol/L 06/11/2018 1:35 PM EST [facility] CARBON DIOXIDE (CO2) 28 21 - 32 mmol/L 06/11/2018 1:35 PM EST [facility] ANION GAP 6 3 - 11 06/11/2018 1:35 PM EST [facility] CALCIUM 8.9 8.5 - 10.5 mg/dL 06/11/2018 1:35 PM EST [facility] 06/11/2018 10:4 1 AM EST 06/11/2018 10:42 AM EST Manas Simnetal MD LAB [facility] documented in this encounter Visit Diagnoses Diagnosis CKD (chronic kidney disease) stage 3, GFR 30-59 ml/min (HCC)- Primary Chronic kidney disease, Stage III (moderate) documented in this encounter Care Teams Mechanical Service Technician Relationship Specialty Start Date End Date Rosmery Khoury MD PCP - General Internal Medicine 03/31/15 07/20/20 Willie Chavez MD [address] [place] [address] PCP - General Internal Medicine 07/21/20 08/16/21 [facility], Pcp [address] [place] [address] PCP - General Internal Medicine 08/17/21 10/17/21 Ann Marie Boucher MD [address] [address] PCP - General Internal Medicine 10/18/21 Carl Gandhi MD, PHD [address] [place] [address] Surgeon Neurosurgery 10/14/21 Tracee Wells PA-C [address] [address] Specialist Neurosurgery 10/14/21 Jacky Valdes PA-C [address] [address] Specialist Neurosurgery 10/14/21 documented as of this encounter
--- OUTSIDE RECORDS SUMMARY | 2024-06-20 09:14 | XMS_ITS | Encounter Summary ---
Author Organization [facility] Address [address] [place] [address] Care Team Providers Care Soaking Pit Operator Name Role Phone Angel Hallman MD Primary Care Provider Unavail able Justin Acevedo MD Primary Care Provider [phone] Rosmery Khoury MD Primary Care Provider Unavaila Willie Villalobos MD Primary Care Provider [phone] [facility], [facility] Primary Care Provider UnavailCarl Trevino MD, PHD Unavailable Unava ilable Tracee Wells PASusanaC Unavailable Jacky ValdesC Unavailable [phone] Ann Marie Boucher MD Primary Care Provider Unavailab le Encounter Details Date Type Department Care Team Description 05/31/2011 Hospital Medical Records [address] [place] [address] Benito Green MD Social History Tobacco Use Types Packs/Day [...] on filedocumented in this encounter Care Teams Soaking Pit Operator Relationship Specialty Start Date End Date Angel Hallman MD PCP - General 11/30/00 03/05/15 Justin Acevedo MD [address] [place] [address] [phone] PCP - General Internal Medicine 03/06/15 03/30/15 Rosmery Khoury MD [address] [place] [address] PCP - General Internal Medicine 03/31/15 07/20/20 Willie Chavez MD [address] [place] [address] PCP - General Internal Medicine 07/21/20 08/16/21 [facility], Pcp [address] [place] [address] PCP - General Internal Medicine 08/17/21 10/17/21 Ann Marie Boucher MD [address] [place] [address] PCP - General Internal Medicine 10/18/21 Carl Gandhi MD, PHD [address] [place] [address] Surgeon Neurosurgery 10/14/21 Tracee Wells PA-C [address] [place] [address] Specialist Neurosurgery 10/14/21 Jacky Valdes PA-C [address] [place] [address] Specialist Neurosurgery 10/14/21 documented as of this encounter
--- OUTSIDE RECORDS SUMMARY | 2024-06-20 09:14 | XMS_ITS | Encounter Summary ---
Author Organization [facility] Address [address] [place] [address] Care Team Providers Care Weapons Officer Naval Activity Name Role Phone Gopal Hallman MD Primary Care Provider Unavail able Justin Acevedo MD Primary Care Provider [phone] Rosmery Khoury MD Primary Care Provider Unavaila Willie Villalobos MD Primary Care Provider [phone] [facility], [facility] Primary Care Provider UnavailCarl Trevino MD, PHD Unavailable Unava ilable Tracee Wells PA-C Unavailable [phone] Jacky Valdes PA-C Unavailable [phone] Ann Marie Boucher MD Primary Care Provider Unavailab le Reason for Visit * Reason Onset Date Comments Radiology Manager Feedback 10/18/2011 Dr. Robert Muniz Encounter Details Date Type Department Care Team Description 10/18/2011 Telephone Medicine/Pediatrics - [address] [phone] Gopal Hallman MD Radiology Manager Feedback (Dr. Robert Muniz) Social History Tobacco Use Types Packs/Day Years Used Date Smoking Tobacco: Former Cigarettes Q uit: 05/08/2000 Smokeless Tobacco: Never Alcohol Use Standard Drinks/Week Comments Not Asked 0 (1 standard drink = 0.6 oz pur e alcohol) 12/wk Sex Assigned at Date Recorded Not on file Job Start Date Occupation Industry Not on file Not on file Not on file documented as of this encounter Miscellaneous Notes * Telephone Encounter - Ashley Boyer - 10/18/2011 11:06 AM EDT Patient: IONA CARABALLO Subscriber Submitter : GOPAL HALLMAN Submitter Type: Provider Provider Role: Referring : 1960 Provider Specialty: [id number] Health Care Event (#[id number]) Specialty Care Review Type: Initial Certification Status : Certified in total Review Id # : [id number] Service Type : Medical Care Place Of Service : Office Visits : 4 Service Date : 10/18/2011-10/17/2012 Service Providers Provider Name ID Provider Type ROBERT MUNIZ NPI : [id number] Service Provider * Telephone Encounter - Zenaida Dias - 10/18/2011 9:44 AM EDT Please verify with the patient now that this is the current/active insurance: Payor: [facility]/[employer] FFS Plan: [employer] $20 [employer] [id number] Product Type: HMO [id number] Effective 02/05/09: [facility] will not retro referral requests over 90 days. If request is for this please instruct patient to call the 800# on their insurance card to appeal. Do not submit a request. Referrals cannot be processed if the insurance is not accurate. If the insurance listed above in red is NO BILLING INFORMATION FOUND FOR THIS ENCOUTNER The patients correct insurance must be obtained and registered in [facility] or their referral can not be processed. Who is calling to request this referral? patient If the caller is not the patient, what is their name? FIRST and LAST NAME of SPECIALIST PATIENT is seeing: Dr. Robert Muniz What specialty is this? Orthopedic surgery DIAGNOSIS Patient is being seen for (Not a body part or a procedure): broken fibula and tibia in left leg Have you seen this SPECIALIST for this PROBLEM/DX before?NO If YES, when: Have you checked REVIEW or the APPT DESK to see if this referral has already been done or has visits left? YES Who referred the patient to this specialty? Gopal Hallman MD Is this visit:Initial Visit Address of Specialist:[facility] [address] [place] Phone # of Specialist:[phone] Fax #: (if applicable):[phone] Does patient have an appointment scheduled?: YES Date of appointment- (including a retro-request): 10/26/11 x5 to start Is this appointment related to: Home injury, but patient has had surgery on his ankle 10/12/11 documented in this encounter Plan of Treatment Not on file documented as of this encounter Visit Diagnoses Not on filedocumented in this encounter Care Teams Weapons Officer Naval Activity Relationship Specialty Start Date End Date Gopal Hallman MD PCP - General 11/30/00 03/05/15 Justin Acevedo MD [address] [place], [place] [phone] PCP - General Internal Medicine 03/06/15 03/30/15 Rosmery Khoury MD [address] [place], [place] [phone] PCP - General Internal Medicine 03/31/15 07/20/20 Willie Chavez MD [address] [place] [address] PCP - General Internal Medicine 07/21/20 08/16/21 [facility], Pcp [address] [place] [address] PCP - General Internal Medicine 08/17/21 10/17/21 Ann Marie Boucher MD [address] [place] [address] PCP - General Internal Medicine 10/18/21 Carl Gandhi MD, PHD [address] [place] [address] Surgeon Neurosurgery 10/14/21 Tracee Wells PA-C [address] [address] Specialist Neurosurgery 10/14/21 Jacky Valdes PA-C [address] [address] Specialist Neurosurgery 10/14/21 documented as of this encounter
--- OUTSIDE RECORDS SUMMARY | 2024-06-20 09:14 | XMS_ITS | Encounter Summary ---
Author Organization [facility] Address [address] [place] [address] Care Team Providers Care Finishing Range Operator Name Role Phone Angel Hallman MD Primary Care Provider Unavail able Justin Acevedo MD Primary Care Provider [phone] Rosmery Khoury MD Primary Care Provider Unavaila Willie Villalobos MD Primary Care Provider [phone] [facility], [facility] Primary Care Provider UnavailCarl Trevino MD, PHD Unavailable Unava ilable Tracee Wells PA-C Unavailable [phone] Jacky ValdesC Unavailable [phone] Ann Marie Boucher MD Primary Care Provider Unavailab le Encounter Details Date Type Department Care Team Description 05/26/2011 Tank Farm Operator Report Medical Records [address] [place] [address] Jose Alejandro Cortez MD Social History Tobacco Use Types Packs/Day [...] on filedocumented in this encounter Care Teams Finishing Range Operator Relationship Specialty Start Date End Date Angel Hallman MD PCP - General 11/30/00 03/05/15 Justin Acevedo MD [address] [place] [address] [phone] PCP - General Internal Medicine 03/06/15 03/30/15 Rosmery Khoury MD [address] [place] [address] PCP - General Internal Medicine 03/31/15 07/20/20 Willie Chavez MD [address] [place] [address] PCP - General Internal Medicine 07/21/20 08/16/21 [facility], Pcp [address] [place] [address] PCP - General Internal Medicine 08/17/21 10/17/21 Ann Marie Boucher MD [address] [place] [address] PCP - General Internal Medicine 10/18/21 Carl Gandhi MD, PHD [address] [place], [place] [phone] Surgeon Neurosurgery 10/14/21 Tracee Wells PA-C [address] [place] [address] Specialist Neurosurgery 10/14/21 Jacky Valdes PA-C [address] [place] [address] Specialist Neurosurgery 10/14/21 documented as of this encounter
--- OUTSIDE RECORDS SUMMARY | 2024-06-20 09:14 | XMS_ITS | Encounter Summary ---
Author Organization [facility] Address [address] [place] [address] Care Team Providers Care Header Setup Operator Name Role Phone Carl Gandhi MD, PHD Unavailable Unava ilable Tracee Wells PA-C Unavailable [phone] Jacky Valdes PA-C Unavailable [phone] Ann Marie Boucher MD Primary Care Provider Unavailab le Encounter Details Date Type Department Care Team Description 10/21/2021 Release of Information Medical Records [address] [place] [address] Abstract, Provider Social History Tobacco Use Types [...] on filedocumented in this encounter Care Teams Header Setup Operator Relationship Specialty Start Date End Date Ann Marie Boucher MD [address] [address] PCP - General Internal Medicine 10/18/21 Carl Gandhi MD, PHD Surgeon Neurosurgery 10/14/21 Tracee Wells PA-C [address] [address] Specialist Neurosurgery 10/14/21 Jacky Valdes PA-C [address] [address] Specialist Neurosurgery 10/14/21 documented as of this encounter
--- OUTSIDE RECORDS SUMMARY | 2024-06-20 09:14 | XMS_ITS | Encounter Summary ---
Author Organization [facility] Address [address] [place] [address] Care Team Providers Care Yard Clerk Name Role Phone Angel Hallman MD Primary Care Provider Unavail able Justin Acevedo MD Primary Care Provider [phone] Rosmery Khoury MD Primary Care Provider Unavaila Willie Villalobos MD Primary Care Provider [phone] [facility], [facility] Primary Care Provider UnavailCarl Trevino MD, PHD Unavailable Unava ilable Tracee Wells PASusanaC Unavailable [phone] Jacky ValdesC Unavailable [phone] Ann Marie Boucher MD Primary Care Provider Unavailab le Encounter Details Date Type Department Care Team Description 10/03/2009 Spa Manager Report Medical Records [address] [place] [id number] Jose Alejandro Cortez MD Social History Tobacco [...] on filedocumented in this encounter Care Teams Yard Clerk Relationship Specialty Start Date End Date Angel Hallman MD PCP - General 11/30/00 03/05/15 Justin Acevedo MD [address] [place] [address] [phone] PCP - General Internal Medicine 03/06/15 03/30/15 Rosmery Khoury MD [address] [place] [address] 69053 PCP - General Internal Medicine 03/31/15 07/20/20 Willie Chavez MD [address] [place] [address] 87372 PCP - General Internal Medicine 07/21/20 08/16/21 [facility], Pcp [address] [place] [address] 59600 PCP - General Internal Medicine 08/17/21 10/17/21 Ann Marie Boucher MD [address] [place] [address]709 PCP - General Internal Medicine 10/18/21 Carl Gandhi MD, PHD [address] [place], [place] [phone] Surgeon Neurosurgery 10/14/21 Tracee Wells PA-C [address] [place] [address]83 Specialist Neurosurgery 10/14/21 Jacky Valdes PA-C [address] [place] [address] 28346 Specialist Neurosurgery 10/14/21 documented as of this encounter
--- OUTSIDE RECORDS SUMMARY | 2024-06-20 09:14 | XMS_ITS | Encounter Summary ---
Author Organization [facility] Address [address] [place] [address] Care Team Providers Care Recreation Worker Name Role Phone Angel Hallman MD Primary Care Provider Unavail able Justin Acevedo MD Primary Care Provider [phone] Rosmery Khoury MD Primary Care Provider Unavaila Willie Villalobos MD Primary Care Provider [phone] Former[facility], [facility] Primary Care Provider UnavailCarl Trevino MD, PHD Unavailable Unava ilable Tracee Wells PA-C Unavailable [phone] Jacky ValdesC Unavailable [phone] Ann Marie Bouchre MD Primary Care Provider Unavailab ian Encounter Details Date Type Department Care Team Description 05/25/2012 Live Ammunition Inspector Report Medical Records [address] [place] [phone] Stepan Zavala MD Social History Tobacco Use [...] on filedocumented in this encounter Care Teams Recreation Worker Relationship Specialty Start Date End Date Angel Hallman MD PCP - General 11/30/00 03/05/15 Justin Acevedo MD [address] [place] [address] [phone] PCP - General Internal Medicine 03/06/15 03/30/15 Rosmery Khoury MD [address] [place] [address] 72309 PCP - General Internal Medicine 03/31/15 07/20/20 Willie Chavez MD [address] [place] [address] 86572 PCP - General Internal Medicine 07/21/20 08/16/21 [facility], Pcp [address] [place], [place] [phone] PCP - General Internal Medicine 08/17/21 10/17/21 Ann Marie Boucher MD [address] [place] [address] 17047 PCP - General Internal Medicine 10/18/21 Carl Gandhi MD, PHD [address] [place], [place] [phone] Surgeon Neurosurgery 10/14/21 Tracee Wells PA-C [address] [place] [address] 02167 Specialist Neurosurgery 10/14/21 Jacky Valdes PA-C [address] [address] Specialist Neurosurgery 10/14/21 documented as of this encounter
--- OUTSIDE RECORDS SUMMARY | 2024-06-20 09:14 | XMS_ITS | Encounter Summary ---
Author Organization [facility] Address [address] [place] [address] Care Team Providers Care Drum Builder Name Role Phone Angel Hallman MD Primary Care Provider Unavail able Justin Acevedo MD Primary Care Provider Rosmery Khoury MD Primary Care Provider Unavaila Willie Villalobos MD Primary Care Provider [phone] [facility], [facility] Primary Care Provider UnavailCarl Trevino MD, PHD Unavailable Unava ilable Tracee WellsC Unavailable [phone] Jacky ValdesC Unavailable [phone] Ann Marie Boucher MD Primary Care Provider Unavailab le Encounter Details Date Type Department Care Team Description 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 [address] [place] [id number] Jose Alejandro Cortez II, MD Social History Tobacco Use Types Packs/Day [...] on filedocumented in this encounter Care Teams Drum Builder Relationship Specialty Start Date End Date Angel Hallman MD PCP - General 11/30/00 03/05/15 Justin Acevedo MD [address] [place] [address] [phone] PCP - General Internal Medicine 03/06/15 03/30/15 Rosmery Khoury MD [address] [place] [address] 19111 PCP - General Internal Medicine 03/31/15 07/20/20 Willie Chavez MD [address] [place] [address] 28422 PCP - General Internal Medicine 07/21/20 08/16/21 [facility], Pcp [address] [place] [address] 70480 PCP - General Internal Medicine 08/17/21 10/17/21 Ann Marie Boucher MD [address] [place] [address] 28358 PCP - General Internal Medicine 10/18/21 Carl Gandhi MD, PHD [address] [place], [place] [phone] Surgeon Neurosurgery 10/14/21 Tracee Wells PA-C [address] [place] [address]22 Specialist Neurosurgery 10/14/21 Jacky Valdes PA-C [address] [place] [address] 49118 Specialist Neurosurgery 10/14/21 documented as of this encounter
--- OUTSIDE RECORDS SUMMARY | 2024-06-20 09:14 | XMS_ITS | Encounter Summary ---
Author Organization [facility] Address [address] [place] [address] Care Team Providers Care Jewelry Technician Name Role Phone Angel Hallman MD Primary Care Provider Unavail able Justin Acevedo MD Primary Care Provider [phone] Rosmery Khoury MD Primary Care Provider Unavaila Willie Villalobos MD Primary Care Provider [phone] Formerly [facility], [facility] Primary Care Provider UnavailCarl Trevino MD, PHD Unavailable Unava ilable Tracee WellsC Unavailable [phone] Jacky Valdes PA-C Unavailable [phone] Ann Marie Boucher MD Primary Care Provider Unavailab le Encounter Details Date Type Department Care Team Description 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 [address] [place] [id number] Xavi Young PA-C Social History Tobacco Use [...] on filedocumented in this encounter Care Teams Jewelry Technician Relationship Specialty Start Date End Date Angel Hallman MD PCP - General 11/30/00 03/05/15 Justin Acevedo MD [address] [place] [address] [phone] PCP - General Internal Medicine 03/06/15 03/30/15 Rosmery Khoury MD [address] [place] [address] 43548 PCP - General Internal Medicine 03/31/15 07/20/20 Willie Chavez MD [address] [place] [address] 87401 PCP - General Internal Medicine 07/21/20 08/16/21 [facility], Pcp [address] [place] [address] 15532 PCP - General Internal Medicine 08/17/21 10/17/21 Ann Marie Boucher MD [address] [place] [address] 9[address] PCP - General Internal Medicine 10/18/21 Carl Gandhi MD, PHD [address] [place] [address] 0[address]45 Surgeon Neurosurgery 10/14/21 Tracee Wells PA-C [address] [place] [address] Specialist Neurosurgery 10/14/21 Jacky Valdes PA-C [address] [address] Specialist Neurosurgery 10/14/21 documented as of this encounter
--- OUTSIDE RECORDS SUMMARY | 2024-06-20 09:14 | XMS_ITS | Encounter Summary ---
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 Records [address] [place] [address] Gerry Enriquez MD Social History Tobacco Use [...] on filedocumented in this encounter Care Teams Oil Field Caser Relationship Specialty Start Date End Date Rosmery Khoury MD PCP - General Internal Medicine 03/31/15 07/20/20 Willie Chavez MD [address] [place] [address] [phone] PCP - General Internal Medicine 07/21/20 08/16/21 [facility], Pcp [address] [place] [address] [place] [address] PCP - General Internal Medicine 08/17/21 10/17/21 Ann Marie Boucher MD [address] [address] PCP - General Internal Medicine 10/18/21 Carl Gandhi MD, PHD [address] [place] [address] Surgeon Neurosurgery 10/14/21 Tracee Wells PA-C [address] [address] Specialist Neurosurgery 10/14/21 Jacky Valdes PA-C [address] [address] Specialist Neurosurgery 10/14/21 documented as of this encounter
--- OUTSIDE RECORDS SUMMARY | 2024-06-20 09:14 | XMS_ITS | Encounter Summary ---
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 [address] [place] [address] Gerry Enriquez MD Social History Tobacco Use [...] on filedocumented in this encounter Care Teams Journalism Internship Relationship Specialty Start Date End Date Rosmery Khoury MD PCP - General Internal Medicine 03/31/15 07/20/20 Willie Chavez MD [address] [place] [address] [phone] PCP - General Internal Medicine 07/21/20 08/16/21 [facility], Pcp [address] [place] [address] [place] [address] PCP - General Internal Medicine 08/17/21 10/17/21 Ann Marie Boucher MD [address] [address] PCP - General Internal Medicine 10/18/21 Carl Gandhi MD, PHD [address] [place] [address] Surgeon Neurosurgery 10/14/21 Tracee Wells PA-C [address] [address] Specialist Neurosurgery 10/14/21 Jacky Valdes PA-C [address] [address] Specialist Neurosurgery 10/14/21 documented as of this encounter
--- OUTSIDE RECORDS SUMMARY | 2024-06-20 09:14 | XMS_ITS | Encounter Summary ---
Author Organization [facility] Address [address] [place] [address] Care Team Providers Care Dry Folder Cloth Name Role Phone Angel Hallman MD Primary Care Provider Unavail able Justin Acevedo MD Primary Care Provider [phone] Rosmery Khoury MD Primary Care Provider Unavaila Willie Villalobos MD Primary Care Provider [phone] [facility], [facility] Primary Care Provider UnavailCarl Trevino MD, PHD Unavailable Unava ilable Tracee Wells PA-C Unavailable [phone] Jacky ValdesC Unavailable [phone] Ann Marie Boucher MD Primary Care Provider Unavailab le Encounter Details Date Type Department Care Team Description 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 [address] [place] [address] Jose Alejandro Cortez MD Social History Tobacco [...] on filedocumented in this encounter Care Teams Dry Folder Cloth Relationship Specialty Start Date End Date Angel Hallman MD PCP - General 11/30/00 03/05/15 Justin Acevedo MD [address] [place] [address] [phone] PCP - General Internal Medicine 03/06/15 03/30/15 Rosmery Khoury MD [address] [place] [address] PCP - General Internal Medicine 03/31/15 07/20/20 Willie Chavez MD [address] [place] [address] PCP - General Internal Medicine 07/21/20 08/16/21 [facility], Pcp [address] [place] [address] PCP - General Internal Medicine 08/17/21 10/17/21 Ann Marie Boucher MD [address] [place] [address] PCP - General Internal Medicine 10/18/21 Carl Gandhi MD, PHD [address] [place], [place] [phone] Surgeon Neurosurgery 10/14/21 Tracee Wells PA-C [address] [place] [address]68 Specialist Neurosurgery 10/14/21 Jacky Valdes PA-C [address] [place] [address] Specialist Neurosurgery 10/14/21 documented as of this encounter
== END 2024-06-20 08:51 | disposition home or self-care (01) ==
LOC: HO.HOSX 08:50
PROVIDERS: PCP Internal Medicine; Visit Provider Physician Assistant
DX: Z98.1 Arthrodesis status (principal); M53.3 Sacrococcygeal disorders, not elsewhere classified; G89.29 Other chronic pain
CPT/HCPCS: 72200; 99212

== ENCOUNTER → 2024-06-20 09:03 | Outpatient (BNV) | payer MEDICARE, SELFPAY | PROVIDERS: PCP Internal Medicine; Visit Provider Radiology Diagnostic Radiology | DX: M53.3 Sacrococcygeal disorders, not elsewhere classified (principal) | CPT/HCPCS: 72200 ==